=== PATIENT | female | born 1935 | race Caucasian/White ===

== ENCOUNTER 2017-03-29 12:26 | Inpatient (IN) | payer MEDICARE, OTHER ==
[~2017-03-29] VITALS: Ht 160 cm; Wt 64.9 kg
[~2017-03-29 12:26] MED LIST: ACETAMINOPHEN-1 EAC1 PO; ASPIR 8181 MG PO; ASPIRIN81 M2 PO; AUGMENTIN 875875 MG PO; AZOR 5-40 MG T1 EACH PO; BENTYL 10 MG CA10 M1 PO; CEFUROXIME250 MG PO; CIPRO500 MG PO; DIFLUCAN200 MG PO; DULCOLAX5 MG PO; ENTOCORT EC 3 MG3 MG PO; FLEXERIL PO; KLOR-CON 1010 MEQ PO; LASIX 20 MG TAB20 MG PO; LASIX 40 MG TAB40 M2 PO; LASIX 40 MG TAB40 MG PO; LOMOTIL TABLET1 EACH PO; LOPERAMIDE 2 MG2 M1 PO; METOPROLOL SUCC25 M1 PO; MULTI VITAMIN1 EACH PO; PEPTO-BISMOL1 TAB PO; UNICOMPLEX M TA1 TA1 PO; VANCOMYCIN PO; XANAX 0.5 MG0.5 MG PO; ZOCOR20 MG PO; ZOLOFT25 MG PO
[2017-03-29 12:27] VITALS: BP 128/81
[2017-03-29] MEDS ORDERED: BENTYL 10 MG CA10 M1 PO (12:38)
[2017-03-29] MEDS ORDERED: AZOR 5-40 MG T1 EACH PO (12:38)
[2017-03-29] MEDS ORDERED: CEFUROXIME250 MG PO (12:38)
[2017-03-29] MEDS ORDERED: XANAX 0.5 MG0.5 MG PO (12:51)
[2017-03-29 13:20] LABS: ABSOLUTE BASOPHILS 0.1 thou/uL (0.0-0.2); ABSOLUTE EOSINOPHILS 0.1 thou/uL (0.0-0.7); ABSOLUTE LYMPHOCYTES 0.8 thou/uL (0.8-5.3); ABSOLUTE MONOCYTES 0.3 thou/uL (0.0-1.2); ABSOLUTE NEUTROPHILS 5.8 thou/uL (1.6-8.1); BASOPHILS 1.9 %; EOSINOPHILS 1.1 %; HEMATOCRIT 43.7 % (37.0-47.0); HEMOGLOBIN 14.4 gm/dL (12.0-15.0); LYMPHOCYTES 11.7 %; MCH 31.7 pg (26.0-34.0); MCHC 32.9 g/dL (28.0-37.0); MCV 96.3 fL (80.0-100.0); MONOCYTES 4.5 %; MPV 9.2 fl. (7.2-11.1); NUCLEATED RBCS 0 /100WBC; PLATELET COUNT* 193 thou/uL (150-400); POLYS 80.8 %; RBC 4.54 mil/uL (4.20-5.00); RDW-CV 13.7 % (10.5-14.5); WBC 7.2 thou/uL (4.0-11.0)
[2017-03-29 13:31] LABS: ANION GAP 7 mmol/L (7-16); BUN 13 mg/dL (7-18); CALCIUM 8.9 mg/dL (8.5-10.1); CHLORIDE 96 mmol/L (98-107); CO2 29 mmol/L (21-32); CREATININE 0.6 mg/dL (0.6-1.3); GLUCOSE 102 mg/dL (70-99); POTASSIUM 4.3 mmol/L (3.5-5.1); SODIUM 132 mmol/L (136-145)
[2017-03-29 13:39] LABS: ALBUMIN 3.6 g/dL (3.4-5.0); ALKALINE PHOSPHATASE 88 U/L (46-116); SGOT 37 U/L (15-37); SGPT 33 U/L (30-65); TOTAL BILIRUBIN 0.8 mg/dL (<0.1-1.0); TOTAL PROTEIN 6.9 g/dL (6.4-8.2); TROPONIN-I LEVEL <0.06 ng/mL (<0.06)
[2017-03-29 14:24] LABS: URINE BILIRUBIN NEGATIVE (Negative); URINE BLOOD TRACE (Negative); URINE CLARITY SL CLOUDY; URINE COLOR STRAW; URINE GLUCOSE-RANDOM NEGATIVE (Negative); URINE KETONES NEGATIVE (Negative); URINE NITRITE-REFLEX NEGATIVE (Negative); URINE PROTEIN NEGATIVE (Negative); URINE UROBILINOGEN 0.2 E.U./dl (0.2-1.0)
[2017-03-29 14:27] LABS: URINE LEUKOCYTES-REFLEX 3+ (Negative)
[2017-03-29 14:32] LABS: BACTERIA-REFLEX 1-9 Few /HPF (None Seen); CASTS None Seen /LPF (None Seen); CRYSTALS None Seen /LPF (None Seen); SQUAMOUS NONE SEEN /LPF (0-3); URINE RBC None Seen /HPF (0-2); URINE WBC-REFLEX >25 Many /HPF (0-5)
--- NOTE | 2017-03-29 16:58 | EKG ---
[place] [address] ELECTROCARDIOGRAM REPORT Name: NABIL TOUSSAINTOlga Room: [place] [address] ADM IN R.#: [id number] Admission: 03/29/17 Attend Phys: Olga Bennett Discharge: Date of : 39 Report #: [id number] THIS REPORT FOR: //name// [facility] ED Test Date: 2017-03-29 Test Time: 13:04:25 Pat Name: PADMINI TOUSSAINT Department: Room: [facility] Gender: F Party Chief: Nia MOLINA : 1935 Requested By: Caremn Garcia Order Number: [id number] MD: Ld Armenta Measurements Intervals [place] Rate: 81 P: FL: QRS: -23 QRSD: 89 T: 21 QT: 383 QTc: 445 Interpretive Statements sinus rhythm with first degree av block Nonspecific T abnormalities, inferior leads Compared to ECG 12/22/2016 17:26:18 no change Electronically Signed On 03-29-2017 16:58:48 ROVING INSPECTOR by Ld Armenta [email or web address] <ELECTRONICALLY SIGNED> By: Ld Armenta MD, FAC 03/29/17 1658 1304 1304 Ld Armenta MD, [facility] /EPI
[2017-03-29 17:11] VITALS: BP 124/78
--- NOTE | 2017-03-29 19:17 | NUR ---
PATIENT RESTING IN ROOM. PATIENT ADMITTED TO UNIT, HISTORY AND ASSESSMENT COMPLETD. MED REC COMPLETD. PLACED ON MONITOR, NSR. PATIENT ORIENTED TO ROOM, CALL LIGHT, AND EXPECTATIONS FOR CARE. PHYSICIAN NOTIFIED OF PATINET STATUS AND MEDICATIONS REQUIESTED.
[2017-03-29 20:40] VITALS: BP 110/68
[2017-03-30 00:41] VITALS: BP 105/59
[2017-03-30 04:06] VITALS: BP 123/66
--- NOTE | 2017-03-30 07:15 | NUR ---
CHANGE OF, BEDSIDE REPORT GIVEN ASSUMED PATIENT CARE PATIENT SEEN AT BEDSIDE, ASLEEP
--- NOTE | 2017-03-30 07:36 | NUR ---
Pt alert and pleasant. Reports bruising to BLE occurring recently, and does not know why it is happening. VSS. Went in to administer metoprolol last evening, and pt reported that she no longer takes 100 mg BID, but rather takes one tab, splits it in half, then breaks off a "small chunk" before taking (between 25 and 50 mg). States she was taking 100 mg BID when BP was higher, but said "they lowered it in December." Will continue to monitor.
[2017-03-30 08:00] VITALS: BP 125/69
[2017-03-30 12:04] VITALS: BP 123/69
[2017-03-30 12:12] LABS: HEMOGLOBIN 13.7 gm/dL (12.0-15.0); MCH 32.2 pg (26.0-34.0); MCHC 33.4 g/dL (28.0-37.0); MCV 96.4 fL (80.0-100.0); MPV 8.5 fl. (7.2-11.1); RBC 4.25 mil/uL (4.20-5.00); RDW-CV 13.4 % (10.5-14.5); WBC 5.8 thou/uL (4.0-11.0)
--- NOTE | 2017-03-30 12:14 | NUR ---
CM ASSESSMENT: Pt is A&O. Resides at home alone. Normally independent with ADLs, cooks, cleans and drives. Pt has a walker and cane at home that she can use for mobility. Hx of [facility]. No hx of SNF. Pt reports that she has not been able to walk very well at home, d/t pain in feet. Discussed possible need for skilled. PT/OT to eval. Limited support sx. Following for dc needs.
[2017-03-30 12:19] LABS: CALCIUM 8.4 mg/dL (8.5-10.1); CREATININE 0.7 mg/dL (0.6-1.3); POTASSIUM 3.7 mmol/L (3.5-5.1)
[2017-03-30 12:21] LABS: APTT 25.4 Seconds (25.0-31.3); INR 1.1; PROTIME 10.4 Seconds (9.20-11.50)
[2017-03-30 15:31] VITALS: BP 120/66
--- NOTE | 2017-03-30 18:54 | NUR ---
PATIENT IN BED AND RESTING REMIANS A AND O X 4 SR WITH 1ST DEGR AT TIMES LUNGS CTA/DIM/RA O2 SAT MID 90S GOOD APPETITE BM TODAY UP WITH ONE ASSIST TO BATHROOM REF SCDS BLE EDEMA 1+ VARIOUS BRUISING NO C/O PAIN TODAY CALL LIGHT IN REACH AND INSTRUCTION GIVEN AND FOLLOWED R FA 22 GA IVF NS AT 100CC/HR
[2017-03-30 20:19] VITALS: BP 122/93
[2017-03-31 00:09] VITALS: BP 103/55
--- NOTE | 2017-03-31 02:18 | NUR ---
Pt reports feeling better. No complaints. VSS, though DBP 90s at 1999. Pt states she takes Axor at home for BP. Informed pt that medication is listed in med rec, but physician has not restarted this med bc her BP has been lower since admission. DBP back down to 60s at MN. Will continue to monitor.
[2017-03-31 04:26] VITALS: BP 114/62
[2017-03-31 05:36] LABS: CALCIUM 8.1 mg/dL (8.5-10.1); CREATININE 0.4 mg/dL (0.6-1.3); POTASSIUM 3.6 mmol/L (3.5-5.1)
[2017-03-31 08:00] VITALS: BP 119/82
--- NOTE | 2017-03-31 09:47 | NUR ---
Spoke with Pt regarding disposition. Discussed skilled, Pt prefers to return home with HH, Pt wants to use [facility] at [facility]. Orders, facesheet and facesheet will need to be faxed to [phone]
--- NOTE | 2017-03-31 10:06 | NUR ---
ASSUMED PT CARE AT 0730,FULL ASSESMENT DONE CHARTED. PT A/O X4, UP TO BATHROOM THIS AM. STATES HER STERIOD SHE GOT THIS AM MADE HER DIZZY, SHE WANTS TO KNOW IF SHE CAN HAVE IT SCHEDULED AT DIFFERED TIMES. PT DENIES PAIN UP SBA, USES CALL LIGHT APPROPRILATY. PLAN FOR MRI THIS AM. WILL [facility]IN[facility] C[facility].
[2017-03-31 11:51] VITALS: BP 127/64
--- NOTE | 2017-03-31 15:25 | 2DMMODE ---
[place] [address] 2 D/M-MODE ECHOCARDIOGRAM Name: NORBERTPADMINI CHRISTENSEN Room: [address] ADM IN [facility]#: [id number] Admission: 03/29/17 Attend Phys: Marlo Meyer Discharge: Date of : 39 Date of Service: 03/31/17 1525 Report #: [id number] THIS REPORT FOR: //name// APPROVED REPORT Study performed: 03/31/2017 14:24:45 EXAM: Comprehensive 2D, Doppler, and color-flow Echocardiogram Patient Location: In-Patient Room #: 220 Status: routine BSA: 1.68 HR: 73 bpm BP: 119/82 mmHg Rhythm: NSR Other Information Study Quality: Good Indications Dizziness, UTI, Bilateral foot pain 2D Dimensions LVEF(%): 73.01 (>50%) IVSd: 10.27 (7-11mm) LVOT Diam: 19.12 (18-24mm) LVDd: 49.51 mm PWd: 11.18 (7-11mm) Ascending Ao: 31.94 (22-36mm) LVDs: 28.62 (25-40mm) Aortic Root: 32.15 mm Scott's LVEF: 73.01 % Volumes Left Atrial Volume (Systole) LA ESV Index: 26.70 mL/m2 Aortic Valve AoV Peak Nakul.: 1.19 m/s AO Peak Gr.: 5.68 mmHg LVOT Max P.79 mmHg AO Mean Gr.: 2.85 mmHg LVOT Mean P.69 mmHg LVOT Max V: 0.97 m/s AO V2 VTI: 24.19 cm LVOT Mean V: 0.59 m/s KLEBER (VTI): 2.63 cm2 LVOT V1 VTI: 22.18 cm Mitral Valve E/A Ratio: 0.59 [place] [address] 2 D/M-MODE ECHOCARDIOGRAM Name: MIRACLE TOUSSAINTNIVEES Room: [address] IN [facility].#: [id number] Admission: 03/29/17 Attend Phys: Marlo Meyer Discharge: Date of : 39 Date of Service: 03/31/17 1525 Report #: [id number] MV Decel. Time: 188.55 ms MV E Max Nakul.: 0.66 m/s MV PHT: 54.68 ms MVA (PHT): 4.02 cm2 TDI E/Lateral E': 9.43 E/Medial E': 9.43 Medial E' Nakul.: 0.07 m/s Lateral E' Nakul.: 0.07 m/s Pulmonary Valve PV Peak Nakul.: 0.88 m/s PV Peak Gr.: 3.10 mmHg Tricuspid Valve TR Peak Gr.: 21.91 mmHg RVSP: 26.00 mmHg Left Ventricle The left ventricle is normal size. There is normal LV segmental wall motion. There is normal left ventricular wall thickness. Left ventricular systolic function is normal. LVEF is 55-60%. Grade I - abnormal relaxation pattern. Right Ventricle The right ventricle is normal size. The right ventricular systolic function is normal. Atria The left atrium size is normal. The right atrium size is normal. Aortic Valve The aortic valve is normal in structure. Trace aortic regurgitation. There is no aortic valvular stenosis. Mitral Valve The mitral valve is normal in structure. Mild mitral regurgitation. No evidence of mitral valve stenosis. Tricuspid Valve The tricuspid valve is normal in structure. Mild tricuspid regurgitation. The RVSP is ___26____ mmHg. Pulmonic Valve The pulmonary valve is normal in structure. There is no pulmonic [place] [address] 2 D/M-MODE ECHOCARDIOGRAM Name: MIRACLE TOUSSAINTNIEVES Room: [address] IN ..#: [id number] Admission: 03/29/17 Attend Phys: Marlo Meyer Discharge: Date of : 39 Date of Service: 03/31/17 1525 Report #: [id number] Great Vessels The aortic root is normal in size. IVC is normal in size and collapses with >50% inspiration Pericardium There is no pericardial effusion. <Conclusion> The left ventricle is normal size. There is normal left ventricular wall thickness. Left ventricular systolic function is normal. LVEF is 55-60%. Grade I - abnormal relaxation pattern. Trace aortic regurgitation. Mild mitral regurgitation. Mild tricuspid regurgitation. The RVSP is ___26____ mmHg. <ELECTRONICALLY SIGNED> By: Inocente Stanley MD, FACC 03/31/17 1525 1525 1525 Inocente Stanley MD, FACC /INF
[2017-03-31 15:47] VITALS: BP 127/64
--- NOTE | 2017-03-31 15:48 | NUR ---
Pt discharging to home today with [facility], faxed dc orders
[2017-03-31] MEDS ORDERED: TYLENOL325 MG PO (16:29)
[2017-03-31] MEDS ORDERED: KEFLEX500 M1 PO (16:40)
[2017-03-31] MEDS ORDERED: VITAMIN B-1100 M1 PO (16:40)
[2017-03-31] MEDS ORDERED: ONDANSETRON HCL4 M2 PO (16:42)
--- NOTE | 2017-03-31 17:55 | NUR ---
PT HAD MRI, DISCUSSED AND REVIEWEED WITH THE DR. RECIEVED DISCHARGE ORDERS FROM DR BOOTH, DR WATERS ALSO OK WITH DISCHARGE TODAY. PT OFFERED CAB VOUCHER, CALLED TO SET UP HAT SPRAYER TIME. PT GIVEN DISCHARGE PAPERS AND SCRIPTS, SHE VERBALIZED UNDERSTANDING OF TEACHING. PT LEFT UNIT WITH NURSING STAFF AT APPROX 1755 WITH ALL BELONGINGS.
--- NOTE | 2017-04-06 19:06 | CON ---
[address] [address] CONSULTATION Name: NORBERTPADMINI CHRISTENSEN Room: [address] IN M.R.#: [id number] Admission: 03/29/17 Attend Phys: Olga Bennett Discharge: 03/31/17 Date of : 39 Report #: [id number] THIS REPORT FOR: //name// CC: Mart Meyer DATE OF SERVICE: 03/31/2017 HISTORY OF PRESENT ILLNESS: This is an 82-year-old female patient who was seen by me yesterday and today. I did not have the patient's prior notes yesterday and therefore, this is a combined note from yesterday and today. Yesterday, she has indicated that she is having tremor in the left foot area. She was also feeling dizzy. Tremor was moderately severe and she indicated it was interfering with her daily activity. Today, she indicates the tremor is better. She indicates she does feel dizzy, but she attributes the dizziness to steroids, which she has to take because of some colitis issues as I understand. Today, she indicates she has no tremor. She has no dizziness and she is feeling better. She has not walked, so she does not know how her walking is. She has walked with a walker for a long period of time. REVIEW OF SYSTEMS: Indicates that this patient has numerous complaints. She has ambulation difficulty, but she had that difficulty for a long time. She does have some nausea. She complained of some foot pains. She indicates that she follows up with Dr. García, a neurologist, but I do not know when was the last time she saw her. Review of systems is also positive for some pruritic rash. This is a nonspecific rash according to the patient. She has a history of urinary tract infection, nonspecific nausea. At one time, she indicates she had hyperkalemia. She also had a history of renal failure as I understand, but this time at least, her creatinine is normal and even below normal. She has some diarrheas in the past. She sometime gets knee pains. Sometimes, she gets li pains. The 14-point review of system was carried out and is positive for multiple things as summarized above. PAST MEDICAL HISTORY: Positive for dizziness and what looks like ambulation difficulty. FAMILY HISTORY: Negative for early age stroke. SOCIAL HISTORY: She indicates she drinks occasionally, but she does not smoke. PHYSICAL EXAMINATION: Indicates she is alert. She is responsive. She can follow simple and complex commands. Her speech, concentration, fund of knowledge and memory is at her baseline. Her cranial nerve examination 2-12 is unremarkable. She does appear to be weak to some extent in the left lower extremity by history, but on examination, her strength looks symmetrical [place] [address] CONSULTATION Name: MIRACLE TOUSSAINTNIEVES Room: [address] IN [facility].#: [id number] Admission: 03/29/17 Attend Phys: Olga Bennett Discharge: 03/31/17 Date of : 39 Report #: [id number] said she has a normal strength now. Her position sense is unremarkable on both sides. Reflexes are somewhat diminished on both sides. I do not believe she has any abnormality of etmynz-ck-pzge. She has no papilledema. There is no meningeal sign. There is no thyroid mass. She is reasonably well-developed individual who does not have any dysmorphic features of eyes, ears and face. Her vision and hearing looks adequate. Her pulses are palpable and she does not have any edema, cyanosis or jaundice. Her cardiac examination does not appear to be showing any definite abnormality. No respiratory difficulty or rhonchi was noticed on either side. Blood pressure is/119 82, respirations 18, pulse is 68, temperature is 98.1. LABORATORY DATA: Indicated normal hemoglobin. Calcium was a trace low at 8.1 over a period of time. She had a thyroid function test, TSH, sed rate, and they were all normal. As far as imaging study is concerned, she had an MRI of the brain, C-spine, lumbar spine and thoracic spine, none of them showed any abnormality, which can explain the patient's symptoms. IMPRESSION: Multiple nonspecific symptoms for which no etiology has been found. She is still complaining of dizziness and episodic symptoms to complete the workup. We will go ahead and do an MRA and echocardiogram. She is better. I am not sure what else can be done here. I talked to her in great detail about her options. I will suggest getting physical therapy and occupational therapy involved. I will put on a little thiamine for a few days and I suggested she follow up with her own neurologist after discharge. More than 50 minutes of time was spent taking care of this patient today and yesterday combined and most of the time was spent counseling the patient about her options and things summarized above. <ELECTRONICALLY SIGNED> By: William Kong MD 04/06/17 1906 0925 [id number] Kong MD /nt
== END 2017-03-31 17:57 | disposition home health service (06) | DRG 690 ==
LOC: M.ERS 12:26 → M.2W 15:34 → M.TBA-ER 15:34 → M.2W 16:59
PROVIDERS: Physician Assistant; ADMIT Internal Medicine
DX: N39.0 Urinary tract infection, site not specified (principal); I10 Essential (primary) hypertension; Z60.2 Problems related to living alone; E78.5 Hyperlipidemia, unspecified; F41.9 Anxiety disorder, unspecified; Z90.49 Acquired absence of other specified parts of digestive tract; Z86.12 Personal history of poliomyelitis; Z88.8 Allergy status to other drugs, medicaments and biological substances; Z98.42 Cataract extraction status, left eye; Z98.41 Cataract extraction status, right eye; Z83.3 Family history of diabetes mellitus

== ENCOUNTER 2017-05-30 12:24 | Inpatient (IN) | payer MEDICARE, OTHER ==
[~2017-05-30] VITALS: Ht 160 cm; Wt 59.0 kg
[~2017-05-30 12:24] MED LIST changes: +KEFLEX500 M1 PO; +ONDANSETRON HCL4 M2 PO; +TYLENOL325 MG PO; +VITAMIN B-1100 M1 PO
[2017-05-30 12:25] VITALS: BP 108/66
[2017-05-30 12:48] LABS: HEMATOCRIT 40.5 % (37.0-47.0); HEMOGLOBIN 14.1 gm/dL (12.0-15.0); MCH 31.8 pg (26.0-34.0); MCHC 34.8 g/dL (28.0-37.0); MCV 91.5 fL (80.0-100.0); MPV 8.4 fl. (7.2-11.1); NUCLEATED RBCS 0 /100WBC; PLATELET COUNT* 228 thou/uL (150-400); RBC 4.43 mil/uL (4.20-5.00); WBC 9.8 thou/uL (4.0-11.0)
[2017-05-30] MEDS ORDERED: ZOLOFT25 MG PO (12:56)
[2017-05-30 12:57] LABS: ANION GAP 6 mmol/L (7-16); BUN 16 mg/dL (7-18); CALCIUM 8.8 mg/dL (8.5-10.1); CHLORIDE 98 mmol/L (98-107); CO2 31 mmol/L (21-32); CREATININE 0.7 mg/dL (0.6-1.3); GLUCOSE 117 mg/dL (70-99); POTASSIUM 3.6 mmol/L (3.5-5.1); SODIUM 135 mmol/L (136-145)
[2017-05-30] MEDS ORDERED: PEPTO-BISMOL1 TAB PO (12:57)
[2017-05-30] MEDS ORDERED: VITAMIN D31000 UNI2 PO (12:59)
[2017-05-30] MEDS ORDERED: ONE DAILY FOR1 EAC3 PO (12:59)
[2017-05-30 13:04] LABS: ALBUMIN 3.2 g/dL (3.4-5.0); ALKALINE PHOSPHATASE 80 U/L (46-116); MAGNESIUM 2.1 mg/dL (1.8-2.4); SGOT 55 U/L (15-37); SGPT 39 U/L (30-65); TOTAL BILIRUBIN 1.2 mg/dL (<0.1-1.0); TOTAL PROTEIN 6.5 g/dL (6.4-8.2); TROPONIN-I LEVEL <0.06 ng/mL (<0.06)
[2017-05-30 13:08] LABS: ABSOLUTE LYMPHOCYTES 0.7 thou/uL (0.8-5.3); ABSOLUTE MONOCYTES 0.9 thou/uL (0.0-1.2); ABSOLUTE NEUTROPHILS 8.2 thou/uL (1.6-8.1); PLATELET ESTIMATE ADEQUATE
[2017-05-30 15:16] LABS: URINE BILIRUBIN NEGATIVE (Negative); URINE BLOOD TRACE (Negative); URINE CLARITY SL CLOUDY; URINE COLOR YELLOW; URINE GLUCOSE-RANDOM NEGATIVE (Negative); URINE KETONES 1+ (Negative); URINE NITRITE-REFLEX NEGATIVE (Negative); URINE PROTEIN NEGATIVE (Negative); URINE UROBILINOGEN 0.2 E.U./dl (0.2-1.0)
[2017-05-30 15:17] LABS: URINE LEUKOCYTES-REFLEX 3+ (Negative)
[2017-05-30 15:21] LABS: BACTERIA-REFLEX >30 Many /HPF (None Seen); CASTS None Seen /LPF (None Seen); URINE WBC-REFLEX >25 Many /HPF (0-5); WBC CLUMPS Moderate (None Seen)
[2017-05-30 15:22] LABS: CRYSTALS None Seen /LPF (None Seen); SQUAMOUS 0-3 Few /LPF (0-3); URINE RBC None Seen /HPF (0-2)
[2017-05-30 17:45] VITALS: BP 99/51
[2017-05-30 18:30] VITALS: BP 111/47
[2017-05-30 20:00] VITALS: BP 105/57
--- NOTE | 2017-05-30 20:00 | NUR ---
this nurse assumes care of pt at 1999, pt is alert and oriented x4, complains of generalized pain rates 7/10, fu cath intact to dependent drainage, cloudy yellow urine with sedement noted, pt is fall risk, roomed close to nurses station, bed in lowest position, call light within reach, bed alarm on
--- NOTE | 2017-05-30 21:26 | NUR ---
ASSUMED CARES OF PT AT 1800 FROM E.D. PT BROUGHT IN BY AMBULANCE. PT FELL AT HOME YESTERDAY AT 1700 AND WAS FOUND BY NEIGHBORS AT 1200 TODAY. PT HAD BEEN LAYING ON FLOOR FOR THAT TIME FRAME. PT IN BED, BED IN LOW LOCKED POSITION, FALL PRECAUTIONS IN PLACE, CALL BUTTON AND PERSONAL ITEMS IN PT REACH. PT ADMISSION AND ASSESSMENT COMPLETED. FIELD STICK IV IN LEFT AC PATENT WITH IV NS INFUSING. PT A&O X4, PLEASANT, COOPERATIVE. AFEBRILE, PERRLA, SKIN INTACT WITH SOME SCATTERED BRUISING, SCATTERED OLD SCABS FROM ITCHING AT HOME. SEPSIS SCREENING NEGATIVE. VSS ON RA. PERRLA, PEDAL AND RADIAL PULSES WNL. CAP REFILL <3 SEC. MINIMAL EDEMA IN LE, SOCKS LEAVING CREASE AIXA ON ANKLES BILATERALLY. HRRR PER AUSCULTATION, LCTAB, NO COUGH, ABD SOFT, NON TENDER TO PALPATION. REPORT TO LAW OFFICE RECEPTIONIST FOR CONTINUED CARES. HOURLY ROUNDING COMPLETED. PT REPORTED PCP D/C'D ERLIN LAST WEEK R/T CAUSING PT N/V. MEDICATION D/C'D IN MAY.
--- NOTE | 2017-05-30 22:46 | NUR ---
PTS BLOOD PRESSURE NOW 90/54, PULSE 80, HELD 1/2 DOSE OF BETA DARIN
[2017-05-31 00:29] VITALS: BP 87/48
[2017-05-31 04:46] LABS: HEMATOCRIT 33.9 % (37.0-47.0); MCH 32.2 pg (26.0-34.0); MCV 91.9 fL (80.0-100.0); MPV 8.9 fl. (7.2-11.1); RBC 3.69 mil/uL (4.20-5.00); RDW-CV 12.5 % (10.5-14.5); WBC 6.1 thou/uL (4.0-11.0)
[2017-05-31 04:56] LABS: HEMOGLOBIN 11.9 gm/dL (12.0-15.0)
[2017-05-31 05:14] VITALS: BP 110/60
--- NOTE | 2017-05-31 05:18 | NUR ---
pt rests quietly throughout the night, pt refuses lovenox injection, says she had dental surgery 1 week ago and was told by that surgeon not to take any kind of blood thinners x 2 weeks, pt complained of generalized pain controlled with PO pain meds, fu cath draining cloudy yellow urine with sedement, IVF infusing, shows no s/s acute distress, bed in lowest position, call light within reach, bed alarm on
[2017-05-31 05:20] LABS: CREATININE 0.7 mg/dL (0.6-1.3); MAGNESIUM 2.1 mg/dL (1.8-2.4); POTASSIUM 4.4 mmol/L (3.5-5.1)
[2017-05-31 07:15] VITALS: BP 108/49
[2017-05-31] MEDS ORDERED: PREDNISONE 10 M10 MG PO (15:29)
[2017-05-31] MEDS ORDERED: VENTOLIN HFA 1818 GM INH (15:41)
[2017-05-31] MEDS ORDERED: DUONEB 2.5-0.5 M3 ML INH (15:41)
[2017-05-31] MEDS ORDERED: CEFPODOXIME PR200 M1 PO (15:44)
--- NOTE | 2017-05-31 15:55 | NUR ---
SPOKE WITH PT.WHO WAS ALERT AND ORIENTED. STATED SHE LIVES ALONE. IS UNSURE WHY SHE FELL. SHE THINKS SHE TRIPPED OVER HER WALKER. SAID SHE WAS VERY SORE. SHE IS ABLE TO COOK,DO ADLS,ETC. 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 ALSO HAS 2 NEIGHBORS THAT HAVE BEEN FRIENDS FOR A LONG TIME AND WILL DRIVE HER PLACES. HER EMERGENCY CONTACT ON [employer] IS HER DAUGHTER IN LAW. SHE CANNOT HELP HER SHE HAS BREAST CANCER AND MS. PT.'S SON SEVERAL YEARS AGO. PT. JUST ENDED HOME HEALTH WITH [facility] LAST WEEK. SPOKE WITH [facility] AND THEY WILL ACCEPT HER BACK AT DISCHARGE. PT.COULD BENEFIT FROM A LIFELINE. WILL DISCUSS.
[2017-05-31 16:12] VITALS: BP 107/61
--- NOTE | 2017-05-31 19:00 | NUR ---
ALERT AND ORIENTED X4. UP WITH ASSIST X1 WITH WALKER AND GAIT BELT. IV IS PATENT AND SALINE LOCKED. PAIN BEING MANAGED WITH PO TYLENOL. DENIES NAUSEA. ATTENDED PHYSICAL THERAPY THIS AM. VSS ON ROOM AIR. HOURLY ROUNDS HAVE BEEN MAINTAINED THROUGHOUT SHIFT. CALL LIGHT IS WITHIN REACH. NURSING WILL CONTINUE TO MONITOR.
[2017-05-31 21:30] VITALS: BP 127/68
[2017-06-01] VITALS (9 sets, daily range): BP systolic 106–137; BP diastolic 55–73
[2017-06-01 04:09] LABS: CALCIUM 8.1 mg/dL (8.5-10.1); CREATININE 0.5 mg/dL (0.6-1.3); MAGNESIUM 2.1 mg/dL (1.8-2.4)
--- NOTE | 2017-06-01 05:22 | NUR ---
PATIENT ALERT AND ORIENTED THROUGHOUT SHIFT. VITAL SIGNS STABLE ON ROOM AIR. HAS BEEN DECLINING LOVENOX INJECTION STATING SHE WAS TOLD NOT TO TAKE BLOOD THINNERS FOR 2 WEEKS. TAVARES CATHETER DRAINING YELLOW URINE WITH TRACE SEDEMENT. IV PATENT AND SALINE LOCKED IN THE LEFT AC. BED ALARM IN PLACE. CALL LIGHT WITHIN REACH. NURSING WILL CONTINUE TO MONITOR.
--- NOTE | 2017-06-01 14:50 | NUR ---
Agree with student nurse, Teri Avila's documentation
--- NOTE | 2017-06-01 16:37 | NUR ---
ASSUMED CARE OF PATIENT AFTER MORNING REPORT. ALERT AND ORIENTED X4. ASSESSMENT COMPLETED AND CHARTED. VSS ON ROOM AIR. PATIENT HAS HAD NO COMPLAINTS OF PAIN OR NAUSEA THIS SHIFT. PATIENTS TAVARES WAS DISCONINUED AT 1400 TODAY. PATIENT IS TRANSFERRING WELL TO THE BEDSIDE COMMODE TO EMPTY HER BLADDER. PATIENT IS PROGRESSING TOWARDS GOALS AND IS RESTING COMFORTALYIN BED AT THIS TIME. HOURLY ROUNDS HAVE BEEN MAINTAINED. CALL LIGHT IS WITHIN REACH. NURSING WILL CONTINUE TO MONITOR.
--- NOTE | 2017-06-02 05:07 | NUR ---
PATIENT ALERT AND ORIENTED X4 THROUGHOUT SHIFT. PAIN MANAGED WITH REPOSITIONING. DENIES NAUSEA. VITAL SIGNS STABLE ON ROOM AIR. TRANSFERS TO RESTROOM WITH 1 ASSIST, WALKER AND GAIT BELT. RESTING COMFORTABLY WITH EYES CLOSED . HOURLY ROUNDS COMPLETE. CALL LIGHT WITHIN REACH. FALL PRECAUTIONS IN PLACE. NURSING WILL CONTINUE TO MONITOR.
[2017-06-02 07:56] VITALS: BP 125/53
--- NOTE | 2017-06-02 12:18 | NUR ---
PER , PT.WILL BE DISCHARGED TOMORROW WITH HH. NOTIFIED [facility] THAT PT.WILL DISCHARGE TOMORROW. DISCUSSED WITH PT. SHE WILL ASK HER FRIENDS TO COME PICK HER UP, PROBABLY IN THE AFTERNOON.
[2017-06-02 14:50] VITALS: BP 109/59; BP 110/75
[2017-06-02 14:51] VITALS: BP 114/57
[2017-06-02 15:02] VITALS: BP 114/57
[2017-06-02 16:03] VITALS: BP 127/62
--- NOTE | 2017-06-02 18:58 | NUR ---
ASSUMED CARE OF PATIENT AFTER MORNING REPORT. ALERT AND ORIENTED X4. ASSESSMENT COMPLETED AND CHARTED. VSS ON ROOM AIR. PATIENT HAS HAD NO COMPLAINTS OF PAIN OR NAUSEA THIS SHIFT. PATIENT HAS ASKED FOR XANAX FOR LEG CRAMPS/TWITCHING. PATIENT WORKED WELL WITH THERAPY AND WALKED THE UNIT WITH STAFF A FEW TIMES TODAY. RESTING COMFORTABLY IN BED AT THIS TIME. HOURLY ROUNDS. CALL LIGHT WITHIN REACH. NURSING WILL CONTINUE TO MONITOR.
[2017-06-02 20:30] VITALS: BP 128/54
[2017-06-03] MEDS ORDERED: CEFUROXIME250 MG PO (07:23)
[2017-06-03 07:58] VITALS: BP 142/67
--- NOTE | 2017-06-03 08:01 | NUR ---
Alert and oriented x 4. She has a bit of an unsteady gait because of polio as a child and generalized weakness from UTI. She's up with stand by assist and walker and gaitbelt to the bathroom. She had generalized pain and had tylenol and xanax this am. She has slept well.
[2017-06-03 10:16] VITALS: BP 114/57
[2017-06-03 10:22] VITALS: BP 114/57
[2017-06-03 12:35] VITALS: BP 114/57
[2017-06-03] MEDS ORDERED: TRAMADOL 50 MG50 MG PO (12:42)
--- NOTE | 2017-06-03 14:19 | NUR ---
PT.TO DISCHARGE TODAY WITH HOME HEALTH. NOTIFIED LEXIE/[facility] AND FAXED ORDERS TO HER. PT.NEEDS CAB RIDE HOME WITH VOUCHER. AMBER PEDRAZA TO CALL FOR CAB WHEN READY.
[2017-06-03 17:11] VITALS: BP 114/57
--- NOTE | 2017-06-03 18:04 | NUR ---
PATIENT LEFT UNIT AT 1600. ALERT AND ORIENTED X4. UP WITH MIN ASSIST WITH WALKER. IV DC'D. PAIN BEING MANAGED WITH PO TYLENOL. DENIES NAUSEA. ANXIETY BEING MANAGED WITH PO MEDICATION. ALL PERSONAL ITEMS LEFT WITH PATIENT. DISCHARGE INSTRUCTIONS, PRESCRIPTIONS, AND NEW MEDICATION INFORMATION SENT WITH PATIENT. VSS ON ROOM AIR. HOURLY ROUNDS HAVE BEEN MAINTAINED THROUGHOUT SHIFT. LEFT WITH TRANSPORTER VIA WHEEL CHAIR VAN.
== END 2017-06-03 16:00 | disposition home health service (06) | DRG 558 ==
LOC: M.ERS 12:24 → M.ORTHSURG 16:34 → M.TBA-ER 16:34 → M.ORTHSURG 17:28
PROVIDERS: Nurse Practitioner Family; ADMIT Internal Medicine
DX: M62.82 Rhabdomyolysis (principal); N30.01 Acute cystitis with hematuria; I50.32 Chronic diastolic (congestive) heart failure; I42.9 Cardiomyopathy, unspecified; M79.81 Nontraumatic hematoma of soft tissue; Z66 Do not resuscitate; I11.0 Hypertensive heart disease with heart failure; E78.5 Hyperlipidemia, unspecified; B96.89 Other specified bacterial agents as the cause of diseases classified elsewhere; W18.30XA Fall on same level, unspecified, initial encounter; Z88.8 Allergy status to other drugs, medicaments and biological substances; Y93.89 Activity, other specified; Y92.89 Other specified places as the place of occurrence of the external cause; Z79.82 Long term (current) use of aspirin; Z79.899 Other long term (current) drug therapy; Z98.42 Cataract extraction status, left eye; Z98.41 Cataract extraction status, right eye; Z82.49 Family history of ischemic heart disease and other diseases of the circulatory system; Z87.19 Personal history of other diseases of the digestive system; Z28.82 Immunization not carried out because of caregiver refusal

== ENCOUNTER 2017-07-19 12:42 | Inpatient (IN) | payer MEDICARE, OTHER ==
[~2017-07-19] VITALS: Ht 152.4 cm
[~2017-07-19 12:42] MED LIST changes: +CEFPODOXIME PR200 M1 PO; +DUONEB 2.5-0.5 M3 ML INH; +ONE DAILY FOR1 EAC3 PO; +PREDNISONE 10 M10 MG PO; +TRAMADOL 50 MG50 MG PO; +VENTOLIN HFA 1818 GM INH; +VITAMIN D31000 UNI2 PO
[2017-07-19 12:45] VITALS: BP 119/63
[2017-07-19 13:05] LABS: MPV 9.1 fl. (7.2-11.1)
[2017-07-19 13:06] LABS: ABSOLUTE BASOPHILS 0.1 thou/uL (0.0-0.2); ABSOLUTE LYMPHOCYTES 0.7 thou/uL (0.8-5.3); ABSOLUTE MONOCYTES 0.4 thou/uL (0.0-1.2); BASOPHILS 1.4 %; EOSINOPHILS 0.7 %; HEMATOCRIT 42.1 % (37.0-47.0); HEMOGLOBIN 14.2 gm/dL (12.0-15.0); LYMPHOCYTES 10.5 %; MCH 31.3 pg (26.0-34.0); MCHC 33.7 g/dL (28.0-37.0); MCV 92.6 fL (80.0-100.0); MONOCYTES 6.2 %; NUCLEATED RBCS 0 /100WBC; PLATELET COUNT* 170 thou/uL (150-400); POLYS 81.2 %; RBC 4.55 mil/uL (4.20-5.00); RDW-CV 12.4 % (10.5-14.5); WBC 6.2 thou/uL (4.0-11.0)
[2017-07-19 13:15] LABS: ANION GAP 7 mmol/L (7-16); BUN 15 mg/dL (7-18); CALCIUM 8.9 mg/dL (8.5-10.1); CHLORIDE 94 mmol/L (98-107); CO2 28 mmol/L (21-32); CREATININE 0.8 mg/dL (0.6-1.3); GLUCOSE 123 mg/dL (70-99); SODIUM 129 mmol/L (136-145)
[2017-07-19 13:17] LABS: APTT 24.5 Seconds (25.0-31.3); INR 1.1; PROTIME 10.3 Seconds (9.20-11.50)
[2017-07-19 13:26] LABS: ALBUMIN 3.5 g/dL (3.4-5.0); ALKALINE PHOSPHATASE 93 U/L (46-116); NT-PRO BRAIN NAT PEPTIDE 255 pg/mL (<300); SGOT 24 U/L (15-37); SGPT 25 U/L (30-65); TOTAL BILIRUBIN 0.6 mg/dL (<0.1-1.0); TOTAL PROTEIN 6.9 g/dL (6.4-8.2); TROPONIN-I LEVEL <0.06 ng/mL (<0.06)
[2017-07-19 13:31] LABS: URINE BILIRUBIN NEGATIVE (Negative); URINE BLOOD 1+ (Negative); URINE CLARITY CLEAR; URINE COLOR YELLOW; URINE GLUCOSE-RANDOM NEGATIVE (Negative); URINE KETONES NEGATIVE (Negative); URINE PROTEIN NEGATIVE (Negative); URINE UROBILINOGEN 0.2 E.U./dl (0.2-1.0)
[2017-07-19 13:32] LABS: URINE LEUKOCYTES-REFLEX 3+ (Negative); URINE NITRITE-REFLEX POSITIVE (Negative)
[2017-07-19 13:37] LABS: SQUAMOUS 0-3 Few /LPF (0-3)
[2017-07-19 13:38] LABS: BACTERIA-REFLEX >30 Many /HPF (None Seen); CASTS None Seen /LPF (None Seen); CRYSTALS None Seen /LPF (None Seen); MUCUS None Seen strn/LPF (None Seen); URINE RBC 3-10 Few /HPF (0-2); URINE WBC-REFLEX >25 Many /HPF (0-5)
[2017-07-19 14:59] VITALS: BP 125/72
--- NOTE | 2017-07-19 14:59 | EKG ---
[place] [address] ELECTROCARDIOGRAM REPORT Name: NORBERTMIRACLENIEVES Room: [address] IN [facility]#: [id number] Admission: 07/19/17 Attend Phys: Olga Bennett Discharge: Date of : 39 Report #: [id number] THIS REPORT FOR: //name// 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 Machine: Nia MOLINA : 1935 Requested By: Efraín Esquivel Order Number: [id number] MD: Inocente Stanley Measurements Intervals [place] Rate: 71 P: 6 [place]: 217 QRS: -20 QRSD: 100 T: 19 QT: 413 QTc: 449 Interpretive Statements Sinus rhythm Ventricular premature complex Borderline prolonged [place] interval Left ventricular hypertrophy Compared to ECG 03/29/2017 13:04:25 Ventricular premature complex(es) now present Left ventricular hypertrophy now present T-wave abnormality no longer present Electronically Signed On 07-19-2017 14:59:44 CDT by Inocente Stanley [email or web address] <ELECTRONICALLY SIGNED> By: Inocente Stanley MD, FACC 07/19/17 1459 1250 1250 Inocente Stanley MD, FACC /EPI
[2017-07-19 15:30] VITALS: BP 121/72
--- NOTE | 2017-07-19 17:49 | NUR ---
ASSUMED CARE OF PATIENT AFTER ARRIVING TO THE UNIT FROM THE ED AT 1520. ADMISSION HISTORY AND ASSESSMENT COMPLETED AND CHARTED. VSS ON ROOM AIR. PATIENT HAS HAD NO COMPLAINTS OF NAUSEA OR SOA, PATIENT HAS COMPLAINTS OF PAIN AND ANXIRTY AND CURRENTLY WAITING FOR HOME MEDS TO BE APPROVED TO ADMINISTER. PATIENT IS RESTING COMFORTABLY IN BED AT THIS TIME, WAITING FOR MEDS. HOURLY ROUNDS MAINTAINED WHILE ON THE UNIT, CALL LIGHT IS WITHIN REACH AND NURSING WILL CONTINUE TO MONITOR.
[2017-07-19 20:00] VITALS: BP 121/53
[2017-07-19] MEDS ORDERED: AZOR 5-40 MG T1 EACH PO (20:33)
[2017-07-19 23:15] VITALS: BP 112/61
[2017-07-20 04:28] LABS: CALCIUM 8.8 mg/dL (8.5-10.1); CREATININE 0.7 mg/dL (0.6-1.3)
--- NOTE | 2017-07-20 05:08 | NUR ---
PT SLEPT AT INTERVALS DURING THE NIGHT, NEW IV FLUIDS ORDERED/GIVEN, UP SBA TO THE BATHROOM WITH CANE, PLEASANT, CALL LIGHT IN REACH, BED ALARM ON FOR SAFETY, WILL CONTINUE TO MONITOR
[2017-07-20 15:40] VITALS: BP 115/65
--- NOTE | 2017-07-20 16:02 | NUR ---
PT.LIVES ALONE. IS KNOW FROM [facility] ADMISSIONS. SHE SAID SHE HAS SOME GOOD FRIENDS THAT GO [employer] SHOPPING EVERY KAJAL FOR HER. 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 SHE HIRES ASSISTED ANGELS TO RUN [employer] AND TAKE HER TO THE DR. SHE HAS A WALKER AND CANE. HAS HAD [facility] IN THE PAST AND WOULD USE THEM AGAIN IF NEEDED. CM WILL FOLLOW.
--- NOTE | 2017-07-20 16:35 | NUR ---
ASSUMED CARE OF PATIENT AFTER MORNING REPORT. ALERT AND ORIENTED X4. ASSESSMENT COMPLETED AND CHARTED. VSS ON ROOM AIR. PATIENT HAS HAD NO COMPPLAINTS OF NAUSEA OR SOA THIS SHIFT. SOME COMPLAINTS OF PAIN AND TWITCHING IN LEGS AND SOME ANXIETY WHICH HAD BEEN MANAGED WITH PAIN AND ANTI-ANXIETY MEDICATIONS. FLUIDS AND ANTIBIOTICS INFUSED ORDERED. PATIENT IS RESTING COMFORTABLY IN BED AT THIS TIME. HOURLY ROUNDS MAINTAINED, CALL LIGHT WITHIN REACH, AND NURSING WILL CONTINUE TO MONITOR.
[2017-07-20 20:30] VITALS: BP 118/60
--- NOTE | 2017-07-21 04:46 | NUR ---
PATIENT REMAINS ALERT AND ORIENTED X4 THROUGHOUT SHIFT. VITAL SIGNS STABLE ON ROOM AIR. TRANSFERS WITH STANDBY ASSIST WITH WALKER TO THE BEDSIDE COMMODE. MAINTAINING REGULAR DIET. DENIES NAUSEA. PAIN CONTROLLED WITH PO PAIN MEDICATION ORDERED. IV PATENT IN THE LEFT HAND INFUSING AT 50 ML/HR. REPOSITIONING SELF. RESTING COMFORTABLY THROUGHOUT NIGHT. FALL PRECAUTIONS IN PLACE. HOURLY ROUNDING COMPLETE. CALL LIGHT WITHIN REACH. NURSING WILL CONTINUE TO MONITOR.
[2017-07-21 08:00] VITALS: BP 143/65
[2017-07-21 14:25] VITALS: BP 105/55
[2017-07-21 15:45] VITALS: BP 122/56
--- NOTE | 2017-07-21 20:34 | NUR ---
I ASSUMED CARE OF THE PATIENT AT 0700. SHE IS ALERT AND ORIENTED X4 AND BED IS IN THE LOW LOCKED POSITION WITH CALL LIGHT IN REACH. SHE IS UP WITH STAND BY ASSIST. SHE SEEMS CONFUSED ABOUT HER HOME MEDICATIONS AND USES MULTIPLE PHARMACIES ([facility] AND [facility]). HOURLY ROUNDING WAS COMPLETED AND PATIENT NEEDS WERE MET. PAIN IS MANAGED WITH PRN MEDICATIONS. PATIENT DIDN'T UNDERSTAND THAT WITH PRN MEDS, SHE NEEDS TO REQUEST THEM AND WAS UPSET THAT THEY WEREN'T JUST BROUGHT TO HER. WILL CONTINUE TO MONITOR.
[2017-07-21 20:45] VITALS: BP 116/59
[2017-07-22 04:04] LABS: HEMATOCRIT 40.5 % (37.0-47.0); HEMOGLOBIN 13.7 gm/dL (12.0-15.0); MCH 31.3 pg (26.0-34.0); MCHC 33.8 g/dL (28.0-37.0); MCV 92.6 fL (80.0-100.0); MPV 9.7 fl. (7.2-11.1); RBC 4.37 mil/uL (4.20-5.00); RDW-CV 12.4 % (10.5-14.5); WBC 5.7 thou/uL (4.0-11.0)
[2017-07-22 04:23] LABS: CALCIUM 8.2 mg/dL (8.5-10.1); CREATININE 0.6 mg/dL (0.6-1.3); POTASSIUM 4.2 mmol/L (3.5-5.1)
--- NOTE | 2017-07-22 04:40 | NUR ---
PATIENT ALERT AND ORIENTED X4 THROUGHOUT SHIFT. VITAL SIGNS STABLE ON ROOM AIR. IV PATENT IN THE LEFT HAND INFUSING AT 50 ML/HR. TOLERATING REGULAR DIET. TRANSFERS WITH ASSIST X1 TO THE BEDSIDE COMMODE WITH THE GAITBELT AND WALKER. DENIES NAUSEA. PAIN CONTROLLED WITH PO PAIN MEDICATIONS ORDERED. RESTED COMFORABLY THROUGHOUT NIGHT. REPOSITIONING SELF IN BED WITH ASSISTANCE AT TIMES. HOURLY ROUNDING COMPLETE. BED IN LOW POSITION, BED ALARM IN PLACE. CALL LIGHT WITHIN REACH. NURSING WILL CONTINUE TO MONITOR.
[2017-07-22 07:45] VITALS: BP 109/82
[2017-07-22] MEDS ORDERED: CEFUROXIME250 MG PO (08:30)
[2017-07-22 12:11] VITALS: BP 109/82
--- NOTE | 2017-07-22 12:12 | NUR ---
PT.TO BE DISCHARGED TODAY. HOME HEALTH NSG.AND P.T. ORDERED. SPOKE WITH PT. SHE ALWAYS USES [facility]. SHE WANTS TO USE THEM AGAIN. SPOKE WITH [facility] AND FAXED HER DISCHARGE SUMMARY AND ORDERS,FACE SHEET AND FACE TO FACE FORM. PT.ALSO SAID SHE NEEDED A CAB TO GET HOME. WILL PROVIDE VOUCHER.
[2017-07-22 12:25] VITALS: BP 109/82
--- NOTE | 2017-07-22 14:24 | NUR ---
[facility] ORDERED AT 1400 WITH 10/10 TAXI. THEY WILL CALL FLOOR WHEN THEY ARRIVE.
== END 2017-07-22 16:06 | disposition home health service (06) | DRG 690 ==
LOC: M.ERS 12:42 → M.ORTHSURG 13:54 → M.TBA-ER 13:54 → M.ORTHSURG 14:27
PROVIDERS: Family Medicine; Internal Medicine; ADMIT Internal Medicine
DX: N39.0 Urinary tract infection, site not specified (principal); E87.1 Hypo-osmolality and hyponatremia; I50.32 Chronic diastolic (congestive) heart failure; R31.9 Hematuria, unspecified; B96.1 Klebsiella pneumoniae [K. pneumoniae] as the cause of diseases classified elsewhere; I11.0 Hypertensive heart disease with heart failure; Z88.8 Allergy status to other drugs, medicaments and biological substances; Z90.49 Acquired absence of other specified parts of digestive tract; Z98.42 Cataract extraction status, left eye; Z98.41 Cataract extraction status, right eye; Z82.49 Family history of ischemic heart disease and other diseases of the circulatory system; Z79.82 Long term (current) use of aspirin; Z79.899 Other long term (current) drug therapy

== ENCOUNTER 2017-08-14 14:18 | Emergency (ER) | payer MEDICARE, OTHER ==
[~2017-08-14] VITALS: Ht 160 cm; Wt 59.0 kg
[2017-08-14 14:40] LABS: ABSOLUTE LYMPHOCYTES 0.8 thou/uL (0.8-5.3); ABSOLUTE MONOCYTES 0.4 thou/uL (0.0-1.2); ABSOLUTE NEUTROPHILS 4.2 thou/uL (1.6-8.1); BASOPHILS 0.6 %; EOSINOPHILS 0.8 %; HEMATOCRIT 42.1 % (37.0-47.0); HEMOGLOBIN 14.5 gm/dL (12.0-15.0); LYMPHOCYTES 14.7 %; MCH 31.2 pg (26.0-34.0); MCHC 34.4 g/dL (28.0-37.0); MCV 90.9 fL (80.0-100.0); MONOCYTES 7.4 %; MPV 8.3 fl. (7.2-11.1); NUCLEATED RBCS 0 /100WBC; PLATELET COUNT* 196 thou/uL (150-400); POLYS 76.5 %; RBC 4.63 mil/uL (4.20-5.00); RDW-CV 12.3 % (10.5-14.5); WBC 5.5 thou/uL (4.0-11.0)
[2017-08-14 14:46] LABS: INR 1.1; PROTIME 10.3 Seconds (9.20-11.50)
[2017-08-14 14:48] LABS: ANION GAP 9 mmol/L (7-16); BUN 15 mg/dL (7-18); CALCIUM 8.7 mg/dL (8.5-10.1); CHLORIDE 92 mmol/L (98-107); CO2 27 mmol/L (21-32); CREATININE 0.6 mg/dL (0.6-1.3); GLUCOSE 120 mg/dL (70-99); POTASSIUM 3.8 mmol/L (3.5-5.1); SODIUM 128 mmol/L (136-145)
[2017-08-14 14:58] LABS: ALBUMIN 3.5 g/dL (3.4-5.0); ALKALINE PHOSPHATASE 100 U/L (46-116); LIPASE 107 U/L (73-393); NT-PRO BRAIN NAT PEPTIDE 150 pg/mL (<300); SGOT 26 U/L (15-37); SGPT 32 U/L (30-65); TOTAL BILIRUBIN 0.4 mg/dL (<0.1-1.0); TOTAL PROTEIN 6.9 g/dL (6.4-8.2); TROPONIN-I LEVEL <0.06 ng/mL (<0.06)
[2017-08-14 15:47] LABS: URINE BILIRUBIN NEGATIVE (Negative); URINE BLOOD NEGATIVE (Negative); URINE CLARITY CLEAR; URINE COLOR YELLOW; URINE GLUCOSE-RANDOM NEGATIVE (Negative); URINE KETONES NEGATIVE (Negative); URINE LEUKOCYTES-REFLEX NEGATIVE (Negative); URINE NITRITE-REFLEX NEGATIVE (Negative); URINE PROTEIN NEGATIVE (Negative); URINE SPECIFIC GRAVITY 1.015 (1.005-1.030); URINE UROBILINOGEN 0.2 E.U./dl (0.2-1.0)
[2017-08-14 17:00] VITALS: BP 135/77
--- NOTE | 2017-08-15 11:20 | EKG ---
[place] [address] ELECTROCARDIOGRAM REPORT Name: MIRACLE TOUSSAINTNIEVES Room: [facility]#: [id number] Admission: 08/14/17 Attend Phys: Discharge: 08/14/17 Date of : 39 Report #: [id number] THIS REPORT FOR: //name// [facility] ED Test Date: 2017-08-14 Test Time: 14:32:33 Pat Name: PADMINI TOUSSAINT Department: Room: Gender: F Sausage Linker: [facility] : 1935 Requested By: Baljeet Montgomery Order Number: [id number] MD: Ld Armenta Measurements Intervals [place] Rate: 113 P: -39 SD: 192 QRS: -30 QRSD: 89 T: 58 QT: 308 QTc: 423 Interpretive Statements Sinus tachycardia Multiple premature complexes supraven Left ventricular hypertrophy Compared to ECG 07/19/2017 12:50:46 Sinus rhythm no longer present Ventricular premature complex(es) no longer present Electronically Signed On 08-15-2017 11:20:11 CDT by Ld Armenta [email or web address] <ELECTRONICALLY SIGNED> By: Ld Armenta MD, FAC 08/15/17 1120 1432 1432 Ld Armenta MD, [facility] /EPI
== END 2017-08-14 17:00 | disposition home or self-care (01) ==
LOC: M.ERS 14:18
PROVIDERS: Emergency Medicine
DX: F41.9 Anxiety disorder, unspecified (principal); I11.0 Hypertensive heart disease with heart failure; I50.30 Unspecified diastolic (congestive) heart failure; Z90.49 Acquired absence of other specified parts of digestive tract; Z88.8 Allergy status to other drugs, medicaments and biological substances

== ENCOUNTER 2017-12-25 20:45 | Emergency (ER) | payer MEDICARE, OTHER ==
[~2017-12-25] VITALS: Ht 160 cm; Wt 54.4 kg
[2017-12-25 21:38] LABS: ABSOLUTE LYMPHOCYTES 0.8 thou/uL (0.8-5.3); ABSOLUTE MONOCYTES 0.4 thou/uL (0.0-1.2); ABSOLUTE NEUTROPHILS 4.7 thou/uL (1.6-8.1); BASOPHILS 0.3 %; EOSINOPHILS 0.3 %; HEMATOCRIT 43.2 % (37.0-47.0); HEMOGLOBIN 14.6 gm/dL (12.0-15.0); LYMPHOCYTES 14.1 %; MCHC 33.7 g/dL (28.0-37.0); MCV 92.1 fL (80.0-100.0); MONOCYTES 5.9 %; MPV 8.8 fl. (7.2-11.1); NUCLEATED RBCS 0 /100WBC; PLATELET COUNT* 205 thou/uL (150-400); POLYS 79.4 %; RBC 4.69 mil/uL (4.20-5.00); RDW-CV 12.5 % (10.5-14.5)
[2017-12-25 21:48] LABS: CALCIUM 8.9 mg/dL (8.5-10.1); CREATININE 0.7 mg/dL (0.6-1.3); POTASSIUM 3.6 mmol/L (3.5-5.1)
[2017-12-25 21:52] LABS: ALBUMIN 3.9 g/dL (3.4-5.0); TOTAL BILIRUBIN 0.4 mg/dL (<0.1-1.0)
[2017-12-25 22:12] LABS: URINE BILIRUBIN NEGATIVE (Negative); URINE BLOOD NEGATIVE (Negative); URINE CLARITY CLEAR; URINE COLOR YELLOW; URINE GLUCOSE-RANDOM NEGATIVE (Negative); URINE KETONES NEGATIVE (Negative); URINE LEUKOCYTES-REFLEX NEGATIVE (Negative); URINE NITRITE-REFLEX NEGATIVE (Negative); URINE PROTEIN NEGATIVE (Negative); URINE UROBILINOGEN 0.2 E.U./dl (0.2-1.0)
[2017-12-26 00:49] VITALS: BP 128/80
--- NOTE | 2017-12-26 10:09 | EKG ---
[place] [address] ELECTROCARDIOGRAM REPORT Name: PADMINI TOUSSAINT Room: [facility]#: [id number] Admission: 12/25/17 Attend Phys: Discharge: 12/26/17 Date of : 39 Report #: [id number] THIS REPORT FOR: //name// [facility] ED Test Date: 2017-12-25 Test Time: 21:10:17 Pat Name: PADMINI TOUSSAINT Department: Room: Gender: F Inside Barrel Lathe Operator: Ranulfo VALDIVIA : 1935 Requested By: Tawny Castellano Order Number: [id number] MD: Ld Armenta Measurements Intervals [place] Rate: 104 P: 0 HI: 110 QRS: -4 QRSD: 94 T: QT: 334 QTc: 440 Interpretive Statements atrial flutter Compared to ECG 08/14/2017 14:32:33 T-wave abnormality now present sinus rhythm no longer present Electronically Signed On 12-26-2017 10:08:50 CDT by Ld Armenta [email or web address] <ELECTRONICALLY SIGNED> By: Ld Armenta MD, FAC 12/26/17 1008 09 09 Ld Armenta MD, [facility] /EPI
== END 2017-12-26 00:54 | disposition home or self-care (01) ==
LOC: M.ERS 20:45
PROVIDERS: Nurse Practitioner Family
DX: R10.30 Lower abdominal pain, unspecified (principal); I11.0 Hypertensive heart disease with heart failure; I50.30 Unspecified diastolic (congestive) heart failure; Z90.49 Acquired absence of other specified parts of digestive tract; Z88.8 Allergy status to other drugs, medicaments and biological substances

== ENCOUNTER 2018-02-19 14:01 | Inpatient (IN) | payer MEDICARE, OTHER ==
[~2018-02-19] VITALS: Ht 160 cm; Wt 59.0 kg
[2018-02-19 14:02] VITALS: BP 133/62
[2018-02-19 14:30] LABS: ABSOLUTE LYMPHOCYTES 0.7 thou/uL (0.8-5.3); ABSOLUTE MONOCYTES 0.3 thou/uL (0.0-1.2); ABSOLUTE NEUTROPHILS 4.4 thou/uL (1.6-8.1); BASOPHILS 0.6 %; EOSINOPHILS 0.9 %; HEMOGLOBIN 13.6 gm/dL (12.0-15.0); LYMPHOCYTES 12.5 %; MCH 31.1 pg (26.0-34.0); MCV 91.2 fL (80.0-100.0); MONOCYTES 5.9 %; NUCLEATED RBCS 0 /100WBC; PLATELET COUNT* 174 thou/uL (150-400); POLYS 80.1 %; RBC 4.39 mil/uL (4.20-5.00); RDW-CV 12.7 % (10.5-14.5); WBC 5.5 thou/uL (4.0-11.0)
[2018-02-19 14:36] LABS: ANION GAP 9 mmol/L (7-16); BUN 19 mg/dL (7-18); CHLORIDE 94 mmol/L (98-107); CO2 28 mmol/L (21-32); CREATININE 0.8 mg/dL (0.6-1.3); GLUCOSE 111 mg/dL (70-99); POTASSIUM 3.8 mmol/L (3.5-5.1); SODIUM 131 mmol/L (136-145)
[2018-02-19 14:50] LABS: ALBUMIN 3.7 g/dL (3.4-5.0); ALKALINE PHOSPHATASE 83 U/L (46-116); NT-PRO BRAIN NAT PEPTIDE 528 pg/mL (<300); SGOT 24 U/L (15-37); SGPT 27 U/L (30-65); TOTAL BILIRUBIN 0.7 mg/dL (<0.1-1.0); TROPONIN-I LEVEL <0.06 ng/mL (<0.06)
[2018-02-19 15:24] LABS: URINE BILIRUBIN NEGATIVE (Negative); URINE BLOOD TRACE (Negative); URINE COLOR YELLOW; URINE GLUCOSE-RANDOM NEGATIVE (Negative); URINE KETONES NEGATIVE (Negative); URINE LEUKOCYTES-REFLEX 3+ (Negative); URINE NITRITE-REFLEX POSITIVE (Negative); URINE PROTEIN NEGATIVE (Negative); URINE UROBILINOGEN 0.2 E.U./dl (0.2-1.0)
[2018-02-19 15:25] LABS: URINE CLARITY HAZY
[2018-02-19 15:32] LABS: CASTS None Seen /LPF (None Seen); CRYSTALS None Seen /LPF (None Seen); SQUAMOUS 0-3 Few /LPF (0-3); URINE RBC None Seen /HPF (0-2); URINE WBC-REFLEX 6-15 Few /HPF (0-5)
[2018-02-19 17:06] VITALS: BP 121/68
[2018-02-19 17:45] VITALS: BP 131/67
--- NOTE | 2018-02-19 18:30 | NUR ---
PATIENT ARRIVED THIS EVENING AT 1720 PER CART WITH A RECENT HX OF BECOMING INCREASINGLY WEAK. PATIENT IS ALERT ANDORIENTED X 4. SHE DENIES PAIN ON ARRIVAL TO THE UNIT. PATIENT STATES THAT SHE IS CURRRENTLY TO WEAK TO WALK. IV FLUIDS INFUSING AT 75/HR FROM THE ER. PATIENT ORIENTED TO ROOM AND PROCEDURES. DIET GIVEN. PATIENT PLACED ON BED BURTON TO VOID PER HER REQUEST. SIDE RAILS ARE UP X 2 AND CALL LIGHT IS IN REACH.
[2018-02-19 20:00] VITALS: BP 129/66
[2018-02-20] VITALS: BP 124/69
--- NOTE | 2018-02-20 04:47 | NUR ---
ASSUMED CARE OF PT AFTER REPORT AT 1930. PT A&0X4. FORGETFUL AT TIMES. VSS. PHYSICAL ASSESSMENT COMPLETED AND CHARTED. PT ON RA WITH 99% O2 SAT. PT ON MED/SURG STATUS. PT UP WITH 1 ASSIST TO BEDSIDE COMMODE. PT COMPLAINED OF CONSTANT RIGHT LOWER QUADRANT ABDOMINAL PAIN WITH PAINSCALE OF 5/10-PAIN MEDS GIVEN PER MAY. PT REQUESTED TO RESUME HER XANAX- DR BOOTH INFORMED WITH NEW ORDERS. 1L NS BOLUS GIVEN ORDERED. HOURLY ROUNDING OBSERVED. CALL LIGHT WITHIN REACH. BED IN LOW POSITION. BED ALARM ON.
[2018-02-20 04:51] LABS: HEMATOCRIT 36.1 % (37.0-47.0); HEMOGLOBIN 12.2 gm/dL (12.0-15.0); MCH 31.2 pg (26.0-34.0); MCHC 33.9 g/dL (28.0-37.0); RBC 3.92 mil/uL (4.20-5.00); RDW-CV 12.5 % (10.5-14.5); WBC 4.5 thou/uL (4.0-11.0)
[2018-02-20 05:10] LABS: ALBUMIN 2.9 g/dL (3.4-5.0); CALCIUM 8.1 mg/dL (8.5-10.1); CREATININE 0.5 mg/dL (0.6-1.3); POTASSIUM 3.9 mmol/L (3.5-5.1); TOTAL BILIRUBIN 0.5 mg/dL (<0.1-1.0); TOTAL PROTEIN 5.5 g/dL (6.4-8.2)
[2018-02-20 07:30] VITALS: BP 127/78
--- NOTE | 2018-02-20 11:09 | EKG ---
[place] [address] ELECTROCARDIOGRAM REPORT Name: NORBERTPADMINI TIWARI Room: [address] ADM IN .R.#: [id number] Admission: 02/19/18 Attend Phys: Olga Bennett Discharge: Date of : 39 Report #: [id number] THIS REPORT FOR: //name// [facility] ED Test Date: 2018-02-19 Test Time: 14:09:27 Pat Name: PADMINI TOUSSAINT Department: Room: [facility] Gender: F Decorator Street And Building: Nia MENDIETA : 1935 Requested By: Nilda Blackwood Order Number: [id number] MD: Angel Carrillo Measurements Intervals [place] Rate: 89 P: 95 [place]: 241 QRS: 15 QRSD: 86 T: 53 QT: 377 QTc: 459 Interpretive Statements Sinus rhythm Prolonged [place] interval Baseline wander in lead(s) II,III,aVF Compared to ECG 12/25/2017 21:10:17 First degree AV block now present Atrial flutter no longer present Electronically Signed On 02-20-2018 11:08:48 AIRCRAFT PNEUDRAULIC SYSTEMS MECHANIC by Angel Carrillo [email or web address] <ELECTRONICALLY SIGNED> By: Angel Carrillo MD, FACC 02/20/18 1108 1409 1409 Angel Carrillo MD, FACC /EPI
[2018-02-20 12:00] VITALS: BP 131/63
--- NOTE | 2018-02-20 12:11 | NUR ---
Pt sound asleep when CM went to assess, will f/u later
--- NOTE | 2018-02-20 15:46 | NUR ---
Pt is A&O. Known to this CM from previous hospital stays. Pt resides at home alone. Normally independent, has supportive friends that are available to assist as needed. Pt has a walker and cane that she can use for mobility. No hx of SNF. Hx of [facility] HH. Pt wants to dc home once medically stable, ok with HH if needed. Following.
[2018-02-20 20:30] VITALS: BP 117/66
--- NOTE | 2018-02-21 06:24 | NUR ---
PATIENT IS ALERT AND ORIENTED TONIGHT SLEEPING PART OF THE NIGHT. SOME PAIN AND ANXIETY THAT IS CONTROLLED WITH ORAL PAIN MEDICATIONS. IV IN RIGHT FOREARM WORKS WELL WITH FLUIDS RUNNING. IS UP STAND BY TO THE BEDSIDE COMMODE. CALL LIGHT IS IN REACH, WILL CONTINUE TO MONITOR,
[2018-02-21 07:45] VITALS: BP 132/65
[2018-02-21 15:36] VITALS: BP 134/65; BP 139/75
--- NOTE | 2018-02-21 17:25 | NUR ---
PATIENT A&OX4, ROOM AIR, IV RIGHT FOREARM FLUIDS INFUSSING. C/O PAIN, PARTIAL RELIEF WITH MEDICATION. UP WITH ASSISTX1 WITH CANE. PLAN FOR DISCHARGE ON TUESDAY. NO OTHER CONCERNS AT THIS TIME. APPROPRIATE AND COOPORATIVE WITH CARE.
[2018-02-21 20:15] VITALS: BP 160/70
--- NOTE | 2018-02-22 06:53 | NUR ---
PT SLEPT MOST OF SHIFT. ASSESSMENT DOCUMENTED. MEDS GIVEN PER E-MAR IV PATENT, FLUIDS INFUSING. PAIN AND ANXIETY MEDS GIVEN PER E-MAR. PT UP TO BATHROOM AND BSC THROUGH NIGHT. PT HAD BM THIS SHIFT. WILL CONTINUE WITH PLAN OF CARE.
[2018-02-22 07:40] VITALS: BP 142/73
[2018-02-22 16:00] VITALS: BP 141/68
--- NOTE | 2018-02-22 17:52 | NUR ---
PATIENT A&OX4, ROOM AIR, IV RIGHT FOREARM FLUIDS INFUSSING. UP STANDY BY ASSISTX1 WITH WALKER, STEADY GIAT. C/O DIZZINESS, PAIN, RELIEF WITH MEDICATION. NO OTHER CONCERNS AT THIS TIME. APPROPRIATE AND COOPORATIVE WITH CARE.
--- NOTE | 2018-02-23 03:13 | NUR ---
PT UP SEVERAL TIMES DURING NIGHT TO USE BSC C/O LEG PAIN TRAMADOL PO GIVEN, IV INFUSING WELL PER PUMP, NO CONCERNS VOICED. DISCUSSED PLAN OF CARE AND AGREEABLE.RESTING WEL THROUGHOUT HOURLY ROUNDS.
[2018-02-23] MEDS ORDERED: KEFLEX500 M1 PO (10:16)
[2018-02-23 10:49] VITALS: BP 134/81
--- NOTE | 2018-02-23 11:00 | NUR ---
DISTRICT RECRUITER SPOKE TO THE PATIENT TO DISCUSS DISCHARGE PLANNING, HH, AND [facility] AT D/C. PATIENT REQUEST HH WITH [facility], AND ACCEPTS [facility]. D/C TELECOM COORDINATOR SPOKE TO LEXIE WITH [facility] TO INFORM OF THE HH REFERRAL, AND FAXED PATIENT'S FACESHEET, H&P, AND D/C ORDERS. [facility] TO CONTACT THE PATIENT TO ARRANGE A TIME TO VISIT. D/C TELECOM COORDINATOR SPOKE TO MACKENZIE WITH [facility] TO INFORM OF REFERRAL AND TO DISCUSS ASSISTING THE PATIENT WITH GETTING ASSISTANCE INTO HER APARTMENT. MACKENZIE INFORMS THAT [facility] CAN PROVIDE TRANSPORT FOR THE PATIENT TO HOME AND HELP HER INTO HER APARTMENT. RN IN-CHARGE PF PATIENT INFORMED OF ALL OF THE ABOVE INFO. CM WILL REMAIN AVIALABLE TO ASSIST AND FOLLOW NEEDED.
[2018-02-23 11:14] VITALS: BP 134/81
--- NOTE | 2018-02-23 11:58 | NUR ---
PT DISCHARGED AND VERBALIZED UNDERSTANDING OF DISCHARGE INSTRUCTIONS. RX CALLED TO [facility] AND GIVEN TO JUSTO THE PHARMACIST TODAY AT NOON. INFORMATION WRITTEN ON RX AND PLACED IN CHART. IV DC'D INTACT. PT IN WHEELCHAIR AND READY TO DC. WILL SIGN OFF CARE AT THIS TIME
== END 2018-02-23 12:00 | disposition home health service (06) | DRG 690 ==
LOC: M.ERS 14:01 → M.2W 15:42 → M.TBA-ER 15:42 → M.2W 17:15 → M.3W 02-20 18:39
PROVIDERS: Family Medicine; Nurse Practitioner Family; ADMIT Internal Medicine
DX: N30.00 Acute cystitis without hematuria (principal); E44.0 Moderate protein-calorie malnutrition; I50.32 Chronic diastolic (congestive) heart failure; E87.1 Hypo-osmolality and hyponatremia; I11.0 Hypertensive heart disease with heart failure; Z90.49 Acquired absence of other specified parts of digestive tract; Z86.12 Personal history of poliomyelitis; Z98.42 Cataract extraction status, left eye; Z98.41 Cataract extraction status, right eye; Z88.8 Allergy status to other drugs, medicaments and biological substances; Z68.23 Body mass index [BMI] 23.0-23.9, adult

== ENCOUNTER 2018-03-08 11:55 | Inpatient (IN) | payer MEDICARE, OTHER ==
[~2018-03-08] VITALS: Ht 160 cm; Wt 54.0 kg
--- NOTE | ~2018-03-08 | CON ---
[address] [address] CONSULTATION Name: NORBERTPADMINI CHRISTENSEN Room: [address] IN .Bong.#: [id number] Admission: 03/08/18 Attend Phys: Olga Bennett Discharge: 03/11/18 Date of : 37 Report #: [id number] THIS REPORT FOR: //name// CC: Mart Meyer HISTORY OF PRESENT ILLNESS: This is a pleasant 83-year-old female with past medical history significant for hypertension, CHF, who presented to the hospital with lower abdominal pain and weakness. The GI service has been consulted for evaluation of constipation. The patient reports that in the past, she has had regular bowel movements, but lately she has noticed having increasing difficulty passing stool. The patient reports passing one bowel movement every 1-2 days, but reports she has to strain excessively for it. The patient denies taking any new medications and any medication for the treatment of constipation. She reports lower abdominal pain that is relieved when she passes bowel movements. She denies any fevers, chills, nausea, vomiting, hematemesis, hematochezia or weight loss. PAST MEDICAL HISTORY: As mentioned above. The patient has a past medical history of hypertension, recurrent urinary tract infections, CHF. PAST SURGICAL HISTORY: The patient had a history of appendectomy in 1998, double hernia repair in 2000. SOCIAL HISTORY: The patient reports drinking 2 beers every day, has been doing this for several years. The patient denies smoking or recreational drug use. FAMILY HISTORY: There is no family history of colorectal cancer. REVIEW OF SYSTEMS: A comprehensive 10-point review of systems is negative except for what was mentioned here. PHYSICAL EXAMINATION: VITAL SIGNS: Temperature 36.4, pulse rate 69, respiratory rate 18, blood pressure 116/59. GENERAL: The patient is alert, awake, oriented times 3. HEENT: Pupils are equal, round, reactive to light and accommodation. Mucous membranes are moist. NECK: There is no congestion. LUNGS: Clear to auscultation bilaterally. CARDIOVASCULAR: Rate and rhythm regular. S1, S2 present. ABDOMEN: Soft. There is no distention, guarding or rigidity. EXTREMITIES: Warm, well perfused. SKIN: Warm and dry. There is no focal neurological deficit. LABORATORY DATA: Hemoglobin 13.4, hematocrit 39.8, platelet count 206, WBC count 4.3. Sodium 134, potassium 4.1, chloride 98, bicarbonate 30, BUN 11, [place] [address] CONSULTATION Name: PADMINI TOUSSAINT Room: [address]#: [id number] Admission: 03/08/18 Attend Phys: Olga Bennett Discharge: 03/11/18 Date of : 39 Report #: [id number] creatinine 0.7, calcium 8.5. IMAGING: CT abdomen and pelvis: Moderate stool throughout the colon suggesting constipation. There is no indication of bowel obstruction or inflammation. A 3.8 x 4.1 cm complex calcified cyst in the left kidney. ASSESSMENT AND PLAN: This is a pleasant 83-year-old female presenting with progressive weakness, lower abdominal pain, and constipation. The gastrointestinal service has been consulted for evaluation of constipation. The patient reports passing 1 hard bowel movement every 1 to 2 days. She has not tried any medication for this thus far. I recommended that the patient start taking MiraLax 17 grams p.o. daily regularly. If the patient does not have satisfactory improvement in her constipation, she can increase it to MiraLax 17 grams p.o. twice a day. Further recommendations will be based on response to therapy. The patient was seen and examined on 03/10/2018. By: [id number] Thomas MD /fior
[2018-03-08 11:57] VITALS: BP 140/78
[2018-03-08 13:10] LABS: ABSOLUTE LYMPHOCYTES 0.9 thou/uL (0.8-5.3); ABSOLUTE MONOCYTES 0.3 thou/uL (0.0-1.2); ABSOLUTE NEUTROPHILS 3.6 thou/uL (1.6-8.1); BASOPHILS 0.5 %; EOSINOPHILS 0.6 %; HEMATOCRIT 40.3 % (37.0-47.0); HEMOGLOBIN 13.6 gm/dL (12.0-15.0); LYMPHOCYTES 17.9 %; MCH 30.8 pg (26.0-34.0); MCHC 33.7 g/dL (28.0-37.0); MCV 91.4 fL (80.0-100.0); MONOCYTES 6.5 %; MPV 8.1 fl. (7.2-11.1); NUCLEATED RBCS 0 /100WBC; PLATELET COUNT* 195 thou/uL (150-400); POLYS 74.5 %; RBC 4.41 mil/uL (4.20-5.00); RDW-CV 12.9 % (10.5-14.5); WBC 4.8 thou/uL (4.0-11.0)
[2018-03-08 13:25] LABS: ANION GAP 7 mmol/L (7-16); BUN 19 mg/dL (7-18); CALCIUM 8.5 mg/dL (8.5-10.1); CHLORIDE 95 mmol/L (98-107); CO2 28 mmol/L (21-32); CREATININE 0.6 mg/dL (0.6-1.3); GLUCOSE 93 mg/dL (70-99); POTASSIUM 4.2 mmol/L (3.5-5.1); SODIUM 130 mmol/L (136-145)
[2018-03-08 13:32] LABS: ALBUMIN 3.4 g/dL (3.4-5.0); ALKALINE PHOSPHATASE 80 U/L (46-116); LIPASE 81 U/L (73-393); NT-PRO BRAIN NAT PEPTIDE 141 pg/mL (<300); SGOT 31 U/L (15-37); SGPT 35 U/L (30-65); TOTAL BILIRUBIN 0.4 mg/dL (<0.1-1.0); TOTAL PROTEIN 6.7 g/dL (6.4-8.2); TROPONIN-I LEVEL <0.06 ng/mL (<0.06)
[2018-03-08 13:51] LABS: URINE BILIRUBIN NEGATIVE (Negative); URINE BLOOD NEGATIVE (Negative); URINE CLARITY CLEAR; URINE COLOR YELLOW; URINE GLUCOSE-RANDOM NEGATIVE (Negative); URINE KETONES NEGATIVE (Negative); URINE LEUKOCYTES-REFLEX NEGATIVE (Negative); URINE NITRITE-REFLEX NEGATIVE (Negative); URINE PROTEIN NEGATIVE (Negative); URINE UROBILINOGEN 0.2 E.U./dl (0.2-1.0)
--- NOTE | 2018-03-08 15:43 | EKG ---
[place] [address] ELECTROCARDIOGRAM REPORT Name: PADMINI TOUSSAINT Room: [place] [address] ADM IN .R.#: [id number] Admission: 03/08/18 Attend Phys: Olga Bennett Discharge: Date of : 39 Report #: [id number] THIS REPORT FOR: //name// [facility] ED Test Date: 2018-03-08 Test Time: 13:08:52 Pat Name: PADMINI TOUSSAINT Department: Room: [facility] Gender: F Disability Benefits Specialist: JONAS : 1935 Requested By: Nilda Blackwood Order Number: [id number] MD: Ld Armenta Measurements Intervals [place] Rate: 89 P: 67 SC: 60 QRS: -13 QRSD: 103 T: 79 QT: 397 QTc: 484 Interpretive Statements Sinus rhythm Short SC interval Biatrial enlargement artifact noted Compared to ECG 02/19/2018 14:09:27 Short SC interval now present Atrial abnormality now present First degree AV block no longer present Electronically Signed On 03-08-2018 15:43:42 SUPERVISORY EXAMINER by Ld Armenta [email or web address] <ELECTRONICALLY SIGNED> By: Ld Armenta MD, [facility] 03/08/18 1543 1308 1308 Ld Armenta MD, [facility] /EPI
[2018-03-08 15:55] VITALS: BP 146/82
[2018-03-08 16:19] VITALS: BP 154/80
[2018-03-09] VITALS: BP 108/60
[2018-03-09 09:50] VITALS: BP 112/72
[2018-03-09 16:00] VITALS: BP 137/72
[2018-03-09 20:30] VITALS: BP 127/67
[2018-03-10 07:40] VITALS: BP 117/68
[2018-03-10 11:24] LABS: ABSOLUTE EOSINOPHILS 0.1 thou/uL (0.0-0.7); ABSOLUTE LYMPHOCYTES 1.1 thou/uL (0.8-5.3); ABSOLUTE MONOCYTES 0.4 thou/uL (0.0-1.2); ABSOLUTE NEUTROPHILS 2.6 thou/uL (1.6-8.1); BASOPHILS 1.1 %; HEMATOCRIT 39.8 % (37.0-47.0); HEMOGLOBIN 13.4 gm/dL (12.0-15.0); LYMPHOCYTES 26.6 %; MCH 31.1 pg (26.0-34.0); MCHC 33.7 g/dL (28.0-37.0); MCV 92.5 fL (80.0-100.0); MONOCYTES 8.6 %; MPV 8.4 fl. (7.2-11.1); NUCLEATED RBCS 0 /100WBC; PLATELET COUNT* 206 thou/uL (150-400); POLYS 60.7 %; RDW-CV 13.1 % (10.5-14.5); WBC 4.3 thou/uL (4.0-11.0)
[2018-03-10 11:39] LABS: CALCIUM 8.5 mg/dL (8.5-10.1); CREATININE 0.7 mg/dL (0.6-1.3); POTASSIUM 4.1 mmol/L (3.5-5.1)
[2018-03-10 17:05] VITALS: BP 116/59
[2018-03-10 20:51] VITALS: BP 112/60
[2018-03-11 04:36] LABS: HEMATOCRIT 35.3 % (37.0-47.0); HEMOGLOBIN 12.2 gm/dL (12.0-15.0); MCH 31.7 pg (26.0-34.0); MCHC 34.6 g/dL (28.0-37.0); MCV 91.6 fL (80.0-100.0); MPV 8.7 fl. (7.2-11.1); RBC 3.85 mil/uL (4.20-5.00); RDW-CV 12.8 % (10.5-14.5); WBC 4.3 thou/uL (4.0-11.0)
[2018-03-11 05:12] LABS: ALBUMIN 2.8 g/dL (3.4-5.0); CREATININE 0.5 mg/dL (0.6-1.3); POTASSIUM 4.8 mmol/L (3.5-5.1); TOTAL BILIRUBIN 0.5 mg/dL (<0.1-1.0); TOTAL PROTEIN 5.5 g/dL (6.4-8.2)
[2018-03-11 07:20] VITALS: BP 133/67
[2018-03-11] MEDS ORDERED: SENNA PLUS TAB1 EACH PO (10:11)
[2018-03-11] MEDS ORDERED: MIRALAX17 GM PO (10:11)
[2018-03-11 10:50] VITALS: BP 133/67
[2018-03-11 11:12] VITALS: BP 133/67
[2018-03-11 11:22] VITALS: BP 133/67
[2018-03-11 14:30] VITALS: BP 133/67
== END 2018-03-11 13:57 | disposition home health service (06) | DRG 641 ==
LOC: M.ERS 11:55 → M.3W 15:04 → M.TBA-ER 15:04 → M.3W 16:03
PROVIDERS: Internal Medicine; Nurse Practitioner Family; ADMIT Internal Medicine
DX: E86.0 Dehydration (principal); E44.1 Mild protein-calorie malnutrition; I50.30 Unspecified diastolic (congestive) heart failure; N39.0 Urinary tract infection, site not specified; E87.1 Hypo-osmolality and hyponatremia; K59.00 Constipation, unspecified; I11.0 Hypertensive heart disease with heart failure; Z90.49 Acquired absence of other specified parts of digestive tract; Z86.12 Personal history of poliomyelitis; Z98.42 Cataract extraction status, left eye; Z98.41 Cataract extraction status, right eye; Z88.8 Allergy status to other drugs, medicaments and biological substances; Z82.49 Family history of ischemic heart disease and other diseases of the circulatory system; Z68.21 Body mass index [BMI] 21.0-21.9, adult; Z79.899 Other long term (current) drug therapy

== ENCOUNTER 2018-03-23 11:28 | Inpatient (IN) | payer MEDICARE, OTHER ==
[~2018-03-23] VITALS: Ht 160 cm; Wt 57.5 kg
[~2018-03-23 11:28] MED LIST changes: +MIRALAX17 GM PO; +SENNA PLUS TAB1 EACH PO
[2018-03-23 11:31] VITALS: BP 128/73
[2018-03-23 12:00] VITALS: BP 150/62
[2018-03-23 12:23] LABS: ABSOLUTE LYMPHOCYTES 0.8 thou/uL (0.8-5.3); ABSOLUTE MONOCYTES 0.4 thou/uL (0.0-1.2); ABSOLUTE NEUTROPHILS 3.7 thou/uL (1.6-8.1); BASOPHILS 0.4 %; EOSINOPHILS 0.6 %; HEMATOCRIT 39.3 % (37.0-47.0); HEMOGLOBIN 13.3 gm/dL (12.0-15.0); MCH 30.8 pg (26.0-34.0); MCV 90.7 fL (80.0-100.0); MONOCYTES 7.7 %; MPV 8.8 fl. (7.2-11.1); NUCLEATED RBCS 0 /100WBC; PLATELET COUNT* 196 thou/uL (150-400); POLYS 75.3 %; RBC 4.33 mil/uL (4.20-5.00); RDW-CV 12.7 % (10.5-14.5); WBC 4.9 thou/uL (4.0-11.0)
[2018-03-23 12:45] LABS: ANION GAP 5 mmol/L (7-16); BUN 15 mg/dL (7-18); CALCIUM 8.6 mg/dL (8.5-10.1); CHLORIDE 92 mmol/L (98-107); CO2 31 mmol/L (21-32); CREATININE 0.7 mg/dL (0.6-1.3); GLUCOSE 97 mg/dL (70-99); POTASSIUM 3.8 mmol/L (3.5-5.1); SODIUM 128 mmol/L (136-145)
[2018-03-23 12:52] LABS: ALBUMIN 3.6 g/dL (3.4-5.0); ALKALINE PHOSPHATASE 76 U/L (46-116); LIPASE 82 U/L (73-393); MAGNESIUM 2.1 mg/dL (1.8-2.4); SGOT 25 U/L (15-37); SGPT 26 U/L (30-65); TOTAL BILIRUBIN 0.6 mg/dL (<0.1-1.0); TROPONIN-I LEVEL <0.06 ng/mL (<0.06)
[2018-03-23 13:21] LABS: URINE BILIRUBIN NEGATIVE (Negative); URINE BLOOD NEGATIVE (Negative); URINE CLARITY CLEAR; URINE COLOR YELLOW; URINE GLUCOSE-RANDOM NEGATIVE (Negative); URINE KETONES TRACE (Negative); URINE LEUKOCYTES-REFLEX NEGATIVE (Negative); URINE NITRITE-REFLEX NEGATIVE (Negative); URINE PROTEIN NEGATIVE (Negative); URINE SPECIFIC GRAVITY <= 1.005 (1.005-1.030); URINE UROBILINOGEN 0.2 E.U./dl (0.2-1.0)
[2018-03-23 15:44] VITALS: BP 135/63
--- NOTE | 2018-03-23 15:45 | NUR ---
ER ADMIT TO 219 TELEPHONE REPORT GIVEN PATIENT TO VIA CART ORIENTED TO AND CALL LIGHT REPORT ABDOMEN PAIN ASSESSING AND CHECKING FOR ORDERS WILL TREAT AND REASSESS
[2018-03-23 16:00] VITALS: BP 134/78
[2018-03-23 20:00] VITALS: BP 148/78
[2018-03-23 22:07] LABS: AMP/METHAMP Negative (Negative); BARBITURATES Negative (Negative); BENZODIAZEPINES POSITIVE (Negative); COCAINE Negative (Negative); METHADONE Negative (Negative); OPIATES Negative (Negative); PCP Negative (Negative); THC Negative (Negative)
[2018-03-24] VITALS: BP 133/65
[2018-03-24 04:00] VITALS: BP 131/65
--- NOTE | 2018-03-24 04:20 | NUR ---
ASSUMED CARE OF PT AFTER REPORT AT 1930. PT A&OX4. FORGETFUL. VSS. PHYSICAL ASSESSMENT COMPLETED AND CHARTED. PT ON RA WITH 97% O2SAT. PT TRACING SR/SB ON TELE. PT UP WITH 1 ASSIST TO BEDSIDE COMMODE. PT COMPLAINED OF LOWER ABDOMINAL & BACK PAIN-PAIN MEDS GIVEN PER MAR. HS REST & SAFETY GOALS ACHIEVED. CALL LIGHT WITHIN REACH. BED IN LOW POSITION.
[2018-03-24 05:07] LABS: HEMATOCRIT 36.7 % (37.0-47.0); HEMOGLOBIN 12.5 gm/dL (12.0-15.0); MCH 31.2 pg (26.0-34.0); MCHC 34.2 g/dL (28.0-37.0); MCV 91.3 fL (80.0-100.0); MPV 8.9 fl. (7.2-11.1); RBC 4.02 mil/uL (4.20-5.00); RDW-CV 12.9 % (10.5-14.5); WBC 4.2 thou/uL (4.0-11.0)
[2018-03-24 05:16] LABS: CALCIUM 8.3 mg/dL (8.5-10.1); CREATININE 0.6 mg/dL (0.6-1.3); MAGNESIUM 2.1 mg/dL (1.8-2.4)
--- NOTE | 2018-03-24 07:15 | NUR ---
CHANGE OF SHIFT BEDSIDE REPORT GIVEN PATIENT SEEN AT BEDSIDE, IN BED AND RESTING ASSUMED PATIENT CARE
[2018-03-24 08:00] VITALS: BP 141/63
--- NOTE | 2018-03-24 10:22 | EKG ---
[place] [address] ELECTROCARDIOGRAM REPORT Name: PADMINI TOUSSAINT Room: [address] ADM IN M.R.#: [id number] Admission: 03/23/18 Attend Phys: Nica Austin MD Discharge: Date of : 39 Report #: [id number] THIS REPORT FOR: //name// [facility] ED Test Date: 2018-03-23 Test Time: 12::19 Pat Name: PADMINI TOUSSAINT Department: Room: [facility] Gender: F Assistant Designer: Nia THAPA : 1935 Requested By: Carmen Garcia Order Number: [id number] MD: Yang Shaffer Measurements Intervals [place] Rate: 68 P: [place]: QRS: -12 QRSD: 103 T: QT: 435 QTc: 463 Interpretive Statements sinus rhythm baseline artefact Electronically Signed On 03-24-2018 10:21:51 TOOTH CUTTER CLUTCH by Yang Shaffer [email or web address] <ELECTRONICALLY SIGNED> By: Yang Shaffer MD, [facility] 03/24/18 1021 1201 120 Yang Shaffer MD, FACC /EPI
--- NOTE | 2018-03-24 11:08 | NUR ---
Pt is A&O. Resides at home alone. Pt is independent with ADLs. Pt states that she continues to do her own cooking and light housecleaning. Pt has a lady that does deep cleaning once/month. Pt uses [facility] for transportation needs. Pt has a walker and cane that she uses for mobility. Pt stated that she is in the process of trying to sell her house, and hopes to be able to move into an [employer] in [place], to be closer to her family (dtr-in-law and grandson). CM plans to put Pt in contact with liaison from [facility]. Pt states that she is current with [facility] HH and wants to resume services at ma. No hx of skilled. CM discussed skilled at ma and Pt declined. Goal is home at ma with HH. HH orders will need to [facility] to [facility], updated [facility] on Pt's hospitalization. [facility] p:[phone] f:[phone]
[2018-03-24 11:18] VITALS: BP 148/70
[2018-03-24] MEDS ORDERED: SENNA PLUS TAB1 EACH PO (13:53)
[2018-03-24 15:01] VITALS: BP 148/70
--- NOTE | 2018-03-24 16:02 | NUR ---
PATIENT DISCHARGED TO HOME WITH H/H IV AND HEART MONITOR REMOVED PERSONAL BELONGINGS RETURNED ASSISTED OUT VIA GOOD CONDITION TO VAN
--- NOTE | 2018-03-24 17:45 | NUR ---
PT. DISCHARGED TO HOME PRIOR TO O.T. SERVICES. PLEASE ORDER FURTHER O.T. SERVICES IF NEEDED.
== END 2018-03-24 16:04 | disposition home health service (06) | DRG 641 ==
LOC: M.ERS 11:28 → M.2W 14:01 → M.TBA-ER 14:01 → M.2W 16:11
PROVIDERS: Physician Assistant; ADMIT Family Medicine
DX: E87.1 Hypo-osmolality and hyponatremia (principal); I50.32 Chronic diastolic (congestive) heart failure; I11.0 Hypertensive heart disease with heart failure; G89.29 Other chronic pain; R10.9 Unspecified abdominal pain; E86.0 Dehydration; Z90.49 Acquired absence of other specified parts of digestive tract; Z86.12 Personal history of poliomyelitis; Z98.42 Cataract extraction status, left eye; Z98.41 Cataract extraction status, right eye; Z88.8 Allergy status to other drugs, medicaments and biological substances; Z73.6 Limitation of activities due to disability; Z82.49 Family history of ischemic heart disease and other diseases of the circulatory system; Z79.82 Long term (current) use of aspirin; Z79.899 Other long term (current) drug therapy

== ENCOUNTER 2018-04-12 11:13 | Inpatient (IN) | payer MEDICARE, OTHER ==
[~2018-04-12] VITALS: Ht 160 cm; Wt 68.0 kg
[2018-04-12 11:20] VITALS: BP 135/78
[2018-04-12 11:38] LABS: ABSOLUTE LYMPHOCYTES 0.7 thou/uL (0.8-5.3); ABSOLUTE MONOCYTES 0.4 thou/uL (0.0-1.2); BASOPHILS 0.5 %; EOSINOPHILS 0.8 %; HEMATOCRIT 38.2 % (37.0-47.0); LYMPHOCYTES 13.5 %; MCH 31.3 pg (26.0-34.0); MCV 92.2 fL (80.0-100.0); MPV 8.6 fl. (7.2-11.1); NUCLEATED RBCS 0 /100WBC; PLATELET COUNT* 161 thou/uL (150-400); POLYS 78.2 %; RBC 4.14 mil/uL (4.20-5.00); RDW-CV 13.2 % (10.5-14.5); WBC 5.1 thou/uL (4.0-11.0)
[2018-04-12 11:50] LABS: ANION GAP 3 mmol/L (7-16); BUN 25 mg/dL (7-18); CALCIUM 9.2 mg/dL (8.5-10.1); CHLORIDE 98 mmol/L (98-107); CO2 33 mmol/L (21-32); CREATININE 0.8 mg/dL (0.6-1.3); GLUCOSE 111 mg/dL (70-99); SODIUM 134 mmol/L (136-145)
[2018-04-12 12:02] LABS: ALBUMIN 3.5 g/dL (3.4-5.0); ALKALINE PHOSPHATASE 83 U/L (46-116); LIPASE 74 U/L (73-393); SGOT 23 U/L (15-37); SGPT 25 U/L (30-65); TOTAL BILIRUBIN 0.4 mg/dL (<0.1-1.0); TOTAL PROTEIN 6.8 g/dL (6.4-8.2); TROPONIN-I LEVEL <0.06 ng/mL (<0.06)
[2018-04-12 12:34] LABS: URINE BILIRUBIN NEGATIVE (Negative); URINE BLOOD NEGATIVE (Negative); URINE CLARITY CLEAR; URINE COLOR YELLOW; URINE GLUCOSE-RANDOM NEGATIVE (Negative); URINE KETONES NEGATIVE (Negative); URINE LEUKOCYTES-REFLEX 1+ (Negative); URINE PROTEIN NEGATIVE (Negative); URINE SPECIFIC GRAVITY <= 1.005 (1.005-1.030); URINE UROBILINOGEN 0.2 E.U./dl (0.2-1.0)
[2018-04-12 12:35] LABS: URINE NITRITE-REFLEX POSITIVE (Negative)
[2018-04-12 12:42] LABS: SQUAMOUS 0-3 Few /LPF (0-3)
[2018-04-12 12:43] LABS: BACTERIA-REFLEX >30 Many /HPF (None Seen); HYALINE CASTS 0-3 Few /LPF (None Seen); MUCUS 0-3 Light strn/LPF (None Seen); URINE RBC 0-2 Rare /HPF (0-2); URINE WBC-REFLEX 0-5 Rare /HPF (0-5)
[2018-04-12 12:44] LABS: CRYSTALS None Seen /LPF (None Seen)
--- NOTE | 2018-04-12 13:40 | NUR ---
REPORT TO WILLIE CLARK ON JSSI
[2018-04-12 14:16] VITALS: BP 141/74; BP 149/73
--- NOTE | 2018-04-12 16:03 | EKG ---
[place] [address] ELECTROCARDIOGRAM REPORT Name: PADMINI TOUSSAINT Room: [address] ADM IN .R.#: [id number] Admission: 04/12/18 Attend Phys: Nica Austin MD Discharge: Date of : 39 Report #: [id number] THIS REPORT FOR: //name// [facility] ED Test Date: 2018-04-12 Test Time: 11:23:19 Pat Name: PADMINI TOUSSAINT Department: Room: [facility] Gender: F Crosstie Inspector: BRIJESH : 1935 Requested By: Efraín Esquivel Order Number: [id number] MD: Yang Shaffer Measurements Intervals [place] Rate: 75 P: NM: QRS: -15 QRSD: 90 T: 31 QT: 379 QTc: 424 Interpretive Statements Sinus rhythm Borderline left axis deviation Electronically Signed On 04-12-2018 16:03:08 HEADER MACHINE OPERATOR by Yang Shaffer [email or web address] <ELECTRONICALLY SIGNED> By: Yang Shaffer MD, [facility] 04/12/18 1603 1123 1123 Yang Shaffer MD, FACC /EPI
--- NOTE | 2018-04-12 17:25 | NUR ---
PT REMAINED ALERT AND ORIENTED. PT HAD ENEMA, HARD DARK BORWN STOOL CAME OUT. PT RESTING IN BED. GI CONSULTED. RT WRIST IV IN PLACE WITH NS AT 100. FALL RISK PRECAUTIONS IN PLACE, HOURLY ROUNDING COMPLETED. WILL CONTINUE TO MONITOR.
[2018-04-12 20:00] VITALS: BP 136/69
--- NOTE | 2018-04-13 04:59 | NUR ---
PT REMAINED A&Ox4 THROUGHOUT SHIFT. VITALS STABLE. PAIN CONTROLLED WITH TRAMADOL AND TYLENOL. IV IN R HAND PATENT, INFUSING. UP WITH STAND BY ASSIST TO CAMMODE. HOURLY ROUNDING COMPLETE. CALL LIGHT WITHIN REACH. WILL CONTINUE TO MONITOR.
[2018-04-13 08:00] VITALS: BP 117/54
--- NOTE | 2018-04-13 12:06 | NUR ---
SPOKE TO THE PATIENT TO DISCUSS HER HOME SITUATION, DISCHARGE PLANNING, AND TO INFORM OF THE ROLE OF CM. PATIENT IS KNOWN TO THIS CM FROM PREVIOUS ADMISSIONS. 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 PATIENT INFORMS THAT SHE PLANNED TO WORK ON SELLING HER HOME AND MOVING TO [place], [place] WHERE HER DIL RESIDES, BUT SHE HAS NOT BEEN WELL SINCE SHE LEFT THE HOSPITAL THE LAST TIME. PATIENT IS CURRENTLY ON-SERVICE WITH [facility] AND [facility] D/C ASSISTANT FOOTBALL COACH SPOKE TO THE PATIENT TO DISCUSS THE CM CONSULT FOR SNF AT D/C. PATIENT INFORMS THAT SHE 'MAY BE INTERESTED IN THAT NOW', BUT THAT IT 'MUST BE IN [place]'. D/C ASSISTANT FOOTBALL COACH PROVIDED INFO ABOUT [facility]. PATIENT IN AGREEMENT. D/C ASSISTANT FOOTBALL COACH INFORMED JEREMY OF THE SNF REFERRAL AND FAXED PATIENT'S FACESHEET AND CLINICAL INFO. CM WILL REMAIN AVAILABLE TO ASSIST AND FOLLOW NEEDED.
[2018-04-13 15:10] LABS: HEMATOCRIT 36.2 % (37.0-47.0); HEMOGLOBIN 12.2 gm/dL (12.0-15.0); MCH 31.3 pg (26.0-34.0); MCHC 33.6 g/dL (28.0-37.0); MCV 93.1 fL (80.0-100.0); MPV 8.7 fl. (7.2-11.1); RBC 3.89 mil/uL (4.20-5.00); RDW-CV 13.4 % (10.5-14.5); WBC 4.7 thou/uL (4.0-11.0)
[2018-04-13 15:28] LABS: CALCIUM 8.5 mg/dL (8.5-10.1); CREATININE 0.6 mg/dL (0.6-1.3)
[2018-04-13 16:46] VITALS: BP 125/65
--- NOTE | 2018-04-13 17:52 | NUR ---
PT IS ALERT AND ORIENTED X 4. IV PATENT. FLUIDS DISCONTINUED. RECEIVED TRAMADOL AND TYLENOL FOR PAIN CONTROL. RECEIVED XANAX FOR ANXIETY. PT C/O INCREASED PAIN IN AFTERNOON-RECEIVED ORDER FOR BENTYL. UP TO CHAIR AND BATHROOM WITH SBA X 1 WITH GAIT BELT AND WALKER. PARTICIPATED WITH THERAPY DURING DAY. DR. BARRERA CONTACTED ABOUT [facility] NOT AVAILABLE IN PHARMACY FOR PATIENT. NEW ORDER FOR MAG. CITRATE IN AM RECEIVED. HOURLY ROUNDS MAINTAINED. CALL LIGHT WITHIN REACH.
[2018-04-13 20:00] VITALS: BP 107/59
[2018-04-14 03:51] LABS: ABSOLUTE EOSINOPHILS 0.1 thou/uL (0.0-0.7); ABSOLUTE LYMPHOCYTES 1.3 thou/uL (0.8-5.3); ABSOLUTE MONOCYTES 0.3 thou/uL (0.0-1.2); ABSOLUTE NEUTROPHILS 2.7 thou/uL (1.6-8.1); BASOPHILS 0.5 %; EOSINOPHILS 2.6 %; HEMOGLOBIN 11.6 gm/dL (12.0-15.0); LYMPHOCYTES 29.9 %; MCH 31.5 pg (26.0-34.0); MCHC 34.2 g/dL (28.0-37.0); MCV 92.1 fL (80.0-100.0); MONOCYTES 7.5 %; MPV 8.6 fl. (7.2-11.1); NUCLEATED RBCS 0 /100WBC; PLATELET COUNT* 140 thou/uL (150-400); POLYS 59.5 %; WBC 4.5 thou/uL (4.0-11.0)
[2018-04-14 04:04] LABS: CREATININE 0.6 mg/dL (0.6-1.3); POTASSIUM 3.1 mmol/L (3.5-5.1)
--- NOTE | 2018-04-14 04:45 | NUR ---
PT REMAINED A&Ox4 THROUGHOUT SHIFT. VITALS STABLE. IV IN R HAND PATENT, SL. PAIN CONTROLLED WITH TRAMADOL. PT HAD SEVERAL BOWEL MOVEMENTS ON SHIFT. UP WITH STB ASSIST TO BATHROOM USING WALKER. FALL PRECAUTIONS IN PLACE. HOURLY ROUNDING COMPLETE. CALL LIGHT WITHIN REACH. WILL CONTINUE TO MONITOR.
[2018-04-14 08:00] VITALS: BP 145/66
[2018-04-14 17:01] VITALS: BP 126/70
--- NOTE | 2018-04-14 18:33 | NUR ---
PT IS ALERT AND ORIENTED X 4. PAIN MANAGED WITH PO TRAMADOL. DENIES NAUSEA. UP WITH SBA X 1 WITH WALKER. PT HAD BOWEL MOVEMENTS DURING NIGHT. REFUSED MIRALAX, SENNA, AND MAG CITRATE THIS AM. PARTICIPATED WITH THERAPY IN THE AFTERNOON. PT PULL OUT IV THIS AM AND RESTARTED WITH 20G RFA. PT RECEIVED PO POTASSIUM REPLACEMENT PER ELECTROLYTE PROTOCOL. HOURLY ROUNDS MAINTAINED. BED/CHAIR ALARM IN USE. CALL LIGHT WITHIN REACH.
[2018-04-14 20:28] VITALS: BP 133/66
[2018-04-15 04:58] LABS: HEMATOCRIT 36.5 % (37.0-47.0); HEMOGLOBIN 12.5 gm/dL (12.0-15.0); MCH 31.8 pg (26.0-34.0); MCHC 34.4 g/dL (28.0-37.0); MCV 92.4 fL (80.0-100.0); MPV 9.3 fl. (7.2-11.1); RBC 3.95 mil/uL (4.20-5.00); RDW-CV 13.5 % (10.5-14.5); WBC 5.3 thou/uL (4.0-11.0)
[2018-04-15 05:05] LABS: CALCIUM 8.4 mg/dL (8.5-10.1); CREATININE 0.6 mg/dL (0.6-1.3); MAGNESIUM 2.1 mg/dL (1.8-2.4)
--- NOTE | 2018-04-15 08:10 | NUR ---
PT IS ABLE TO COMMUNICATE HER NEEDS TO STAFF EFFECTIVELY. CURRENT PAIN MEDICATION REGIMEN HAS BEEN ADEQUATE FOR CONTROLLING HER PAIN UP TO THIS TIME. GI FOLLOWING. POSSIBLE DISCHARGE TO [facility] SOON.
[2018-04-15 09:30] VITALS: BP 140/69
[2018-04-15 16:41] VITALS: BP 122/48
[2018-04-15 20:09] VITALS: BP 122/78
[2018-04-16 04:15] VITALS: BP 107/62
--- NOTE | 2018-04-16 04:19 | NUR ---
PT REMAINED ALERT AND ORIENTED. PT GIVEN ANXIETY MEDS AND PAIN MEDS ORDERED. PT DENIED ANY FURTHER NEEDS OR CONCERNS AND SLEPT MOST OF NIGHT. FALL RISK PRECAUTIONS IN PLACE. HOURLY ROUNDING COMPLETED. WILL CONTINUE TO MONITOR.
[2018-04-16 04:40] LABS: HEMATOCRIT 37.2 % (37.0-47.0); HEMOGLOBIN 12.6 gm/dL (12.0-15.0); MCH 31.7 pg (26.0-34.0); MCV 93.1 fL (80.0-100.0); MPV 8.6 fl. (7.2-11.1); RBC 3.99 mil/uL (4.20-5.00); RDW-CV 13.3 % (10.5-14.5); WBC 4.2 thou/uL (4.0-11.0)
[2018-04-16 05:13] LABS: CALCIUM 8.5 mg/dL (8.5-10.1); CREATININE 0.6 mg/dL (0.6-1.3); POTASSIUM 3.8 mmol/L (3.5-5.1)
[2018-04-16 08:15] VITALS: BP 142/71
[2018-04-16 13:56] VITALS: BP 142/71
[2018-04-16] MEDS ORDERED: KEFLEX500 M1 PO (14:00)
[2018-04-16 15:25] VITALS: BP 142/71
--- NOTE | 2018-04-16 15:53 | NUR ---
PATIENT DISCHARGED FROM UNIT AT 1540 VIA WHEELCHAIR VAN. ALERT AND ORIENTED X 4. VITAL SIGNS STABLE ON ROOM AIR. AFEBRILE. IV DISCONTINUED. DENIES NAUSEA. PAIN BEING MANAGED WITH PO MEDICATION. DISCHARGE PACKET GIVEN TO TRANSPORTER. PATIENT LEFT WITH ALL BELONGINGS.
[2018-04-16 15:55] VITALS: BP 142/71
== END 2018-04-16 15:40 | DRG 690 ==
LOC: M.ERS 11:13 → M.TBA-ER 13:04 → M.ORTHSURG 13:04
PROVIDERS: Family Medicine; Internal Medicine Gastroenterology; ADMIT Family Medicine
DX: N39.0 Urinary tract infection, site not specified (principal); E87.1 Hypo-osmolality and hyponatremia; I42.9 Cardiomyopathy, unspecified; I50.32 Chronic diastolic (congestive) heart failure; K59.09 Other constipation; E87.6 Hypokalemia; R26.9 Unspecified abnormalities of gait and mobility; R33.9 Retention of urine, unspecified; I11.0 Hypertensive heart disease with heart failure; E86.0 Dehydration; Z90.49 Acquired absence of other specified parts of digestive tract; Z98.41 Cataract extraction status, right eye; Z98.42 Cataract extraction status, left eye; Z79.82 Long term (current) use of aspirin; Z88.8 Allergy status to other drugs, medicaments and biological substances; Z82.49 Family history of ischemic heart disease and other diseases of the circulatory system

== ENCOUNTER 2018-04-30 15:12 | Inpatient (IN) | payer MEDICARE, OTHER ==
[~2018-04-30] VITALS: Ht 160 cm; Wt 50.8 kg
[2018-04-30 15:12] VITALS: BP 148/80
[2018-04-30 15:36] LABS: ABSOLUTE LYMPHOCYTES 0.7 thou/uL (0.8-5.3); ABSOLUTE MONOCYTES 0.4 thou/uL (0.0-1.2); ABSOLUTE NEUTROPHILS 3.6 thou/uL (1.6-8.1); BASOPHILS 0.4 %; EOSINOPHILS 0.3 %; HEMATOCRIT 37.6 % (37.0-47.0); HEMOGLOBIN 12.9 gm/dL (12.0-15.0); LYMPHOCYTES 14.2 %; MCH 31.4 pg (26.0-34.0); MCHC 34.4 g/dL (28.0-37.0); MCV 91.2 fL (80.0-100.0); MONOCYTES 7.9 %; MPV 8.8 fl. (7.2-11.1); NUCLEATED RBCS 0 /100WBC; PLATELET COUNT* 168 thou/uL (150-400); POLYS 77.2 %; RBC 4.12 mil/uL (4.20-5.00); RDW-CV 13.5 % (10.5-14.5); WBC 4.6 thou/uL (4.0-11.0)
[2018-04-30 15:54] LABS: ALBUMIN 3.7 g/dL (3.4-5.0); ALKALINE PHOSPHATASE 85 U/L (46-116); ANION GAP 7 mmol/L (7-16); BUN 21 mg/dL (7-18); CALCIUM 9.2 mg/dL (8.5-10.1); CHLORIDE 93 mmol/L (98-107); CO2 28 mmol/L (21-32); GLUCOSE 112 mg/dL (70-99); NT-PRO BRAIN NAT PEPTIDE 327 pg/mL (<300); POTASSIUM 4.4 mmol/L (3.5-5.1); SGOT 28 U/L (15-37); SGPT 23 U/L (30-65); SODIUM 128 mmol/L (136-145); TOTAL BILIRUBIN 0.4 mg/dL (<0.1-1.0); TOTAL PROTEIN 7.1 g/dL (6.4-8.2); TROPONIN-I LEVEL <0.06 ng/mL (<0.06)
[2018-04-30 18:01] VITALS: BP 148/80
[2018-04-30 18:33] VITALS: BP 148/80
[2018-04-30 20:00] VITALS: BP 133/69
[2018-05-01 04:17] LABS: HEMATOCRIT 36.2 % (37.0-47.0); HEMOGLOBIN 12.4 gm/dL (12.0-15.0); MCH 31.3 pg (26.0-34.0); MCHC 34.1 g/dL (28.0-37.0); MCV 91.8 fL (80.0-100.0); MPV 9.2 fl. (7.2-11.1); RBC 3.95 mil/uL (4.20-5.00); RDW-CV 13.3 % (10.5-14.5); WBC 3.9 thou/uL (4.0-11.0)
[2018-05-01 04:28] LABS: CALCIUM 8.7 mg/dL (8.5-10.1); CREATININE 0.9 mg/dL (0.6-1.3); MAGNESIUM 2.1 mg/dL (1.8-2.4)
[2018-05-01 05:08] LABS: POTASSIUM 5.8 mmol/L (3.5-5.1)
[2018-05-01 08:33] VITALS: BP 136/76
--- NOTE | 2018-05-01 09:38 | EKG ---
[place] [address] ELECTROCARDIOGRAM REPORT Name: PADMINI TOUSSAINT Room: [address] ADM IN .R.#: [id number] Admission: 04/30/18 Attend Phys: Monae Johnson MD Discharge: Date of : 39 Report #: [id number] THIS REPORT FOR: //name// [facility] ED Test Date: 2018-04-30 Test Time: 15:19:55 Pat Name: PADMINI TOUSSAINT Department: Room: [facility] Gender: F Conduit Reamer Operator: : 1935 Requested By: Eulalio Diaz Order Number: [id number] MD: Ld Armenta Measurements Intervals [place] Rate: 103 P: 93 [place]: 210 QRS: 30 QRSD: 92 T: 55 QT: 352 QTc: 461 Interpretive Statements Sinus tachycardia Borderline prolonged [place] interval Compared to ECG 04/12/2018 11:23:19 Sinus rhythm no longer present Electronically Signed On 05-01-2018 9:37:52 JUNIOR HIGH SCHOOL PRINCIPAL by Ld Armenta [email or web address] <ELECTRONICALLY SIGNED> By: Ld Armenta MD, [facility] 05/01/18 0937 1519 1519 Ld Armenta MD, [facility] /EPI
[2018-05-01 14:05] LABS: URINE BILIRUBIN NEGATIVE (Negative); URINE BLOOD NEGATIVE (Negative); URINE CLARITY CLEAR; URINE COLOR YELLOW; URINE GLUCOSE-RANDOM NEGATIVE (Negative); URINE KETONES NEGATIVE (Negative); URINE LEUKOCYTES-REFLEX NEGATIVE (Negative); URINE NITRITE-REFLEX NEGATIVE (Negative); URINE PROTEIN NEGATIVE (Negative); URINE UROBILINOGEN 0.2 E.U./dl (0.2-1.0)
[2018-05-01 16:00] VITALS: BP 146/72
[2018-05-01 20:30] VITALS: BP 111/60
[2018-05-02 04:00] VITALS: BP 114/59
[2018-05-02 08:00] VITALS: BP 122/64
[2018-05-02 16:03] VITALS: BP 125/70
[2018-05-02 19:50] VITALS: BP 153/84
[2018-05-03 04:00] VITALS: BP 117/66
[2018-05-03 09:00] VITALS: BP 124/73
[2018-05-03 10:19] VITALS: BP 124/73
== END 2018-05-03 15:10 | disposition home health service (06) | DRG 312 ==
LOC: M.ERS 15:12 → M.ORTHSURG 15:40 → M.TBA-ER 15:40 → M.ORTHSURG 17:31
PROVIDERS: Nurse Practitioner Family; ADMIT Internal Medicine
DX: I95.1 Orthostatic hypotension (principal); E87.1 Hypo-osmolality and hyponatremia; I42.9 Cardiomyopathy, unspecified; N39.0 Urinary tract infection, site not specified; I50.32 Chronic diastolic (congestive) heart failure; K59.00 Constipation, unspecified; E86.9 Volume depletion, unspecified; I10 Essential (primary) hypertension; I11.0 Hypertensive heart disease with heart failure; E86.0 Dehydration; Z90.49 Acquired absence of other specified parts of digestive tract; Z98.41 Cataract extraction status, right eye; Z98.42 Cataract extraction status, left eye; Z88.8 Allergy status to other drugs, medicaments and biological substances; Z82.49 Family history of ischemic heart disease and other diseases of the circulatory system

== ENCOUNTER 2018-05-04 09:02 | Inpatient (IN) | payer MEDICARE, OTHER ==
[~2018-05-04] VITALS: Ht 160 cm; Wt 52.2 kg
[2018-05-04 08:00] VITALS: BP 167/80
[2018-05-04 09:23] LABS: ABSOLUTE EOSINOPHILS 0.1 thou/uL (0.0-0.7); ABSOLUTE LYMPHOCYTES 0.8 thou/uL (0.8-5.3); ABSOLUTE MONOCYTES 0.3 thou/uL (0.0-1.2); BASOPHILS 0.4 %; HEMATOCRIT 41.1 % (37.0-47.0); HEMOGLOBIN 13.9 gm/dL (12.0-15.0); LYMPHOCYTES 19.6 %; MCH 30.8 pg (26.0-34.0); MCHC 33.8 g/dL (28.0-37.0); MCV 91.1 fL (80.0-100.0); MONOCYTES 6.8 %; MPV 8.7 fl. (7.2-11.1); NUCLEATED RBCS 0 /100WBC; PLATELET COUNT* 178 thou/uL (150-400); POLYS 71.2 %; RBC 4.51 mil/uL (4.20-5.00); RDW-CV 13.2 % (10.5-14.5); WBC 4.3 thou/uL (4.0-11.0)
[2018-05-04 09:35] LABS: APTT 26.6 Seconds (25.0-31.3); PROTIME 10.6 Seconds (9.20-11.50)
[2018-05-04 09:48] LABS: ALBUMIN 3.5 g/dL (3.4-5.0); ALKALINE PHOSPHATASE 81 U/L (46-116); ANION GAP 5 mmol/L (7-16); BUN 14 mg/dL (7-18); CHLORIDE 97 mmol/L (98-107); CO2 31 mmol/L (21-32); CREATININE 0.8 mg/dL (0.6-1.3); GLUCOSE 105 mg/dL (70-99); NT-PRO BRAIN NAT PEPTIDE 442 pg/mL (<300); SGOT 27 U/L (15-37); SGPT 31 U/L (30-65); SODIUM 133 mmol/L (136-145); TOTAL BILIRUBIN 0.4 mg/dL (<0.1-1.0); TROPONIN-I LEVEL <0.06 ng/mL (<0.06)
[2018-05-04 10:52] LABS: URINE BILIRUBIN NEGATIVE (Negative); URINE BLOOD NEGATIVE (Negative); URINE CLARITY CLEAR; URINE COLOR YELLOW; URINE GLUCOSE-RANDOM NEGATIVE (Negative); URINE KETONES NEGATIVE (Negative); URINE LEUKOCYTES-REFLEX NEGATIVE (Negative); URINE NITRITE-REFLEX NEGATIVE (Negative); URINE PROTEIN NEGATIVE (Negative); URINE UROBILINOGEN 0.2 E.U./dl (0.2-1.0)
[2018-05-04 13:31] VITALS: BP 111/61
[2018-05-04 13:45] VITALS: BP 167/80
--- NOTE | 2018-05-04 13:45 | NUR ---
ER ADMIT TO RM 220 TELEPHONE REPORT GIVEN PATIENT TO RM VIA CART ORIENTED TO RM AND CALL LIGHT REPORTS PAIN GENERALIZED WILL CONTACT DR FOR ORDERS AND TREAT RAUL
--- NOTE | 2018-05-04 16:24 | EKG ---
[place] [address] ELECTROCARDIOGRAM REPORT Name: NORBERTMIRACLENIEVES Room: [address] ADM IN R.#: [id number] Admission: 05/04/18 Attend Phys: Olga Bennett Discharge: Date of : 39 Report #: [id number] THIS REPORT FOR: //name// [facility] ED Test Date: 2018-05-04 Test Time: 09:22:24 Pat Name: PADMINI TOUSSAINT Department: Room: [facility] Gender: F Progressive Care Unit Registered Nurse: TONA : 1935 Requested By: Wade Mcdonald Order Number: [id number] MD: Ld Armenta Measurements Intervals [place] Rate: 68 P: 67 MD: 219 QRS: 1 QRSD: 95 T: 40 QT: 414 QTc: 441 Interpretive Statements Sinus rhythm Borderline prolonged MD interval Compared to ECG 04/30/2018 15:19:55 Sinus tachycardia no longer present Electronically Signed On 05-04-2018 16:23:59 CHIEF DOG LICENSE INSPECTOR by Ld Armenta [email or web address] <ELECTRONICALLY SIGNED> By: Ld Armenta MD, [facility] 05/04/18 1623 0922 0922 Ld Armenta MD, [facility] /EPI
[2018-05-04 16:33] LABS: CALCIUM 8.6 mg/dL (8.5-10.1); CREATININE 0.6 mg/dL (0.6-1.3); POTASSIUM 4.1 mmol/L (3.5-5.1)
[2018-05-04 16:34] VITALS: BP 138/75
[2018-05-04 20:00] VITALS: BP 156/80
[2018-05-05] VITALS: BP 135/69
--- NOTE | 2018-05-05 03:42 | NUR ---
PT ALERT ORIENTED. UP TO BR WITH STD BY ASSIST OF ONE. PT REQUESTING EXTRA TRAMADOL DOSES. XANAX GIVEN. PT STATES SHE IS UNABLE TO RATE PAIN. SHE STATED IT HURTS AND I HAVE THE SHAKES. DR BOOTH NOTIFIED. ONE TIME DOSE OF IVP MORPHINE GIVEN. PT RESTED QUIETLY AFTER MORHINE. NS AT 100MLS/HR.
[2018-05-05 04:00] VITALS: BP 139/52
--- NOTE | 2018-05-05 07:20 | NUR ---
CHANGE OF SHIFT, BEDSIDE REPORT GIVEN PATIENT SEEN AT BEDSIDE, IN BED ASLEEP ASSUMED PATIENT CARE
[2018-05-05 08:00] VITALS: BP 143/72
--- NOTE | 2018-05-05 10:33 | NUR ---
INITIAL ASSESSMENT: Pt evaluated for d/c planning needs. Reviewed chart and spoke with nurse and pt. Pt is alert and oriented and well known to Case Management. Pt lives alone and was independent with ADL's. Pt was hospitalized earlier this week at [facility] with constipation and d/c home on 05/03 with [facility]. Pt was re-admitted on 05/04 with diarrhea. Pt has spoken with someone from [facility]. She states that she wants to eventually sell her house and move to an assisted living closer to her daughter in [place]. Pt said she has been unable to make any arrangements to sell her house because she has been hospitalized several times recently. Pt has been admitted to [facility] 8 times in the past 12 months. Offered to have someone from a new assisted living in [place] come and speak with pt and she adamantly refuses. Pt also refuses to go to SNF and said she will only go to her home with home health. Notified [facility] of re-admission to the hospital. Will contact [facility] when pt is d/c.
[2018-05-05 11:48] VITALS: BP 141/75
--- NOTE | 2018-05-05 12:05 | NUR ---
Spoke with patient with [facility]. Explained what [facility] does. Patient open to speaking to them after hospital stay. States" There is too much pressure right now." Patient still planning to sell home and move to [facility] closer to family in [place], but feels too much pressure to jimenez the process. Also discussed possibility of SNF at [facility]. Patient refusing to discuss. Will pass all info on to CM.
[2018-05-05 15:36] VITALS: BP 136/74
[2018-05-05 20:00] VITALS: BP 141/72
[2018-05-06 00:39] VITALS: BP 139/62
--- NOTE | 2018-05-06 04:36 | NUR ---
ASSUMED PT CARE AT APPROX 1930. PT AWAKE AND ORIENTED X4. VSS ON ROOM AIR. NOT IN DISTRESS. 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 PAIN CONTROLLED WITH TRAMADOL GIVEN PER MAY. PT ABLE TO SLEEP THROUGH THE NIGHT. CALL LIGHT WITHIN REACH. HOURLY ROUNDING DONE FOR PT SAFETY.
[2018-05-06 04:52] VITALS: BP 128/68
--- NOTE | 2018-05-06 08:37 | NUR ---
ASSUMED PT. CARE AND RECEIVED REPORT AT 0730. PT A/OX4, VSS, MONITOR ON TRACING SB1ST. PT. REPORTS PAIN IS GETTING "BETTER" IN ABD. RATING 4/10 CURRENTLY POST TREATMENT. ON RA @ 98%. FULL ASSESSMENT COMPLETED, REFER TO CHARTING. PT. ENCOURAGE TO GET UP TO CHAIR FOR BREAKFAST, WANTS TO STAY IN BED CURRENTLY. CALL LIGHT IN REACH, FALL PRECUATIONS IN PLACE.
[2018-05-06 08:45] VITALS: BP 125/73
[2018-05-06 12:00] VITALS: BP 146/75
[2018-05-06 16:00] VITALS: BP 145/78
--- NOTE | 2018-05-06 19:01 | NUR ---
PT. STABLE THROUGH OUT SHIFT. CONTINUES TO C/O OF ABD. TENDERNESS, CONTROLED WITH TRAMADOL. REPORTS 1 DIARRHEA STOOL, FLUSHED PRIOR TO RN SEEING. PT. REMAINS ANXIOUS AT TIMES AND FIXATED ON HAVING STOOLS. HOURLY ROUNDING COMPLETED THROUGH OUT THE DAY FOR PT. SAFETY.
[2018-05-06 20:00] VITALS: BP 136/74
[2018-05-07] VITALS: BP 120/68; BP 181/71
--- NOTE | 2018-05-07 04:56 | NUR ---
ASSUMED PT CARE AT APPROX 1930. REASSESSMENT DONE AND CHARTED. PT AWAKE AND ORIENTED X4. VSS ON ROOM AIR. 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 NOT IN DISTRESS. WITH COMPLAINTS OF GENERALIZED BODY PAIN PARTIALLY RELIEVED BY TRAMADOL GIVEN PER MAY. CALL NATI [facility]. HOURLY ROUNDING DONE FOR PT SAFETY.
[2018-05-07 05:00] VITALS: BP 135/71
[2018-05-07 07:40] VITALS: BP 114/72
[2018-05-07 10:58] VITALS: BP 114/72
--- NOTE | 2018-05-07 11:31 | NUR ---
ATTEMPT TO CALL [facility] TO [employer]EL DIE PRINTER PT AND TAKE HER HOME BUT THEY ARE NOT AVAILABLE ON THE WEEKENDS. [facility] [facility] HAS BEEN USED IN THE PAST. SPOKE TO [facility] [employer] . THEY STATED THEY CAN ASSIST PT TO HER FRONT DOOR. TRANSPORTATION ARRANGED FOR 1-1:30 PM TO TAKE PT HOME. PT REFUSES SNF
[2018-05-07 11:56] VITALS: BP 149/87
--- NOTE | 2018-05-07 13:33 | NUR ---
ASSUMED CARE OF PATIENT AT APPROX 0730. ALERT AND ORIENTED X4. ASSESSMENT COMPLETED AND CHARTED. VSS ON ROOM AIR. NO COMPLAINTS OF NAUSEA OR SOA. PAIN COMPLAINT MINIMAL AND ADDRESSED WITH ORAL MEDICATION. SOME COMPLAINT OF ANXIETY, ALSO ADDRESSED WITH ORAL MEDICATION. PATIENT DISCHARGED AT 1333 WITH ALL PERSONAL BELONGINGS AND DISCHARGE INSTRUCTIONS. PATIENT TRANSPORTED HOME VIA [facility].
== END 2018-05-07 13:33 | disposition home or self-care (01) | DRG 312 ==
LOC: M.ERS 09:02 → M.2W 12:34 → M.TBA-ER 12:34 → M.2W 13:43
PROVIDERS: Emergency Medicine Emergency Medical Services; ADMIT Internal Medicine
DX: I95.1 Orthostatic hypotension (principal); E87.1 Hypo-osmolality and hyponatremia; E44.0 Moderate protein-calorie malnutrition; I50.30 Unspecified diastolic (congestive) heart failure; K52.9 Noninfective gastroenteritis and colitis, unspecified; N28.9 Disorder of kidney and ureter, unspecified; I11.0 Hypertensive heart disease with heart failure; F41.9 Anxiety disorder, unspecified; Z87.440 Personal history of urinary (tract) infections; Z88.8 Allergy status to other drugs, medicaments and biological substances; Z79.82 Long term (current) use of aspirin; Z90.49 Acquired absence of other specified parts of digestive tract; Z79.899 Other long term (current) drug therapy; Z82.49 Family history of ischemic heart disease and other diseases of the circulatory system; Z68.20 Body mass index [BMI] 20.0-20.9, adult